=== PATIENT | female | born 1975 | race Caucasian/White ===

== ENCOUNTER → 2020-04-24 09:51 | Outpatient (CLI) | payer BC, SELFPAY ==
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
== END ==
PROVIDERS: Visit Provider Nurse Practitioner Family
DX: M54.6 Pain in thoracic spine (principal); M47.896 Other spondylosis, lumbar region
CPT/HCPCS: 72070; 72110

== ENCOUNTER → 2020-05-20 15:25 | Outpatient (CLI) | payer BC, SELFPAY ==
--- NOTE | ~2020-05-20 | XR_ITS ---
EXAMINATION: XR cervical spine 4-5V DATE: 05/20/2020 15:59 INDICATION: Neck pain. TECHNIQUE: 6 views of cervical spine were obtained. COMPARISON: None. FINDINGS: Bone alignment is normal. Vertebral body heights are normal. There is mildly decreased disc height at C4-C5. There is no abnormal motion with flexion or extension. At C4-C5, there is mild bila teral uncovertebral joint osteoarthritis. The facet joints are unremarkable. No central canal stenosi s or prevertebral soft tissue swelling. IMPRESSION: 1. Mild cervical spondylosis. Reviewed, dictated and finalized at location A.
--- NOTE | ~2020-05-20 | XR_ITS ---
XR shoulder LT min 2V 05/20/2020 15:59 Indication: Left shoulder pain Procedure: 4 views left shoulder Comparison: No prior studies for comparison. Findings: No fracture or traumatic malalignment. No significant soft tissue abnormality. No foreign b odies. Anatomic alignment. Impression: 1: No significant bone or joint abnormality. Reviewed, dictated and finalized at location B. Impression: 1: No significant bone or joint abnormality.
== END ==
PROVIDERS: Visit Provider Nurse Practitioner Family
DX: M25.512 Pain in left shoulder (principal); M47.892 Other spondylosis, cervical region
CPT/HCPCS: 72050; 73030

== ENCOUNTER 2021-08-19 02:11 | Day surgery (SDC) | payer OTHER, SELFPAY ==
[2021-08-05 09:46] VITALS: BMI 25.0
--- NOTE | 2021-08-18 20:54 | PM.HPGS ---
History of Present Illness History of Present Illness Consent: Risks, benefits, and alternatives have been discussed and questions answered. Patient agrees to proceed with procedure. Chief complaint: diarrhea Narrative: Christin Momin is a 46 year old female with diarrhea for 1 year,And negative Celiac testing, she will have 8-10 watery stools per day. The next day she will be constipated have abdominal pain. She was given a prescription for Xifaxan but it just became approved a couple days ago and she has not started taking it yet. There has been no blood in her stools. Review of Systems Review of Systems: All systems reviewed & are unremarkable except as noted in HPI and below PMFSH Past Medical History Medical History Anxiety Surgical History Surgical History H/O breast surgery (~2002) augmentation History of endometrial ablation (~11/17/19) History of tubal ligation (~11/17/19) Family History Family History Mother Hypertension Father Patient's father is in good health, Onset Age: 66 Social History Social History Smoking status: Never smoker Alcohol intake: current Drinks per week: 3 Substance use: never Living arrangements: with family Sexual Orientation (if Verbalized by the Patient): Straight or Heterosexual Meds Home Medications and Allergies Home Medications Medication Instructions Recorded Confirmed Type sodium sul 1.479 gram-potas ch See Rx Instructions PO PER PKG DIR 07/12/21 08/05/21 Rx 0.188 gram-magnes sul 0.225 gram #24 tabs tablet (Sutab) bupropion HCl 150 mg 24 hr tablet, 150 tablet PO DAILY 08/05/21 08/05/21 History extended release methocarbamol 750 mg tablet 750 tablet PO PRN PRN Spasms 08/05/21 08/05/21 History Allergies Allergy/AdvReac Type Severity Reaction Status Date / Time codeine Allergy Intermediate dizziness Verified 08/19/21 08:46 Exam Const: General: alert Orientation/consciousness: patient oriented x3 Resp: Auscultation: clear to auscultation bilaterally Cardio: Rhythm: regular rhythm GI: GI Palp: Yes Soft to palpation and No Tenderness to palpation present (GI) Neuro: General: patient oriented x3 Assessment and Plan Assessment and plan (1) Chronic diarrhea: Code(s): K52.9 - Noninfective gastroenteritis and colitis, unspecified Status: Acute Assessment and Plan: Colonoscopy with possible biopsy or polypectomy or cautery or injection of substances.
[2021-08-19 08:47] VITALS: BP 144/102; PULSE 92; RESP 20; TEMP 36.2; O2SAT 100
[2021-08-19] MEDS: LACTATED RINGERS 1,000 ML 150 ML IV CONT (08:58)
--- NOTE | 2021-08-19 09:17 | WPDANESEPPF ---
Anes - Initial Pre Proc Eval Procedure: Operation Date: 08/19/21 09:30 Proposed Procedures p Colonoscopy - Sanjay Case MD Date/Time: 08/19/21 09:17 Surgeon: Sanjay Case MD Pre Op Diagnosis: diarrhea Patient Data Age: 46 Gender: F Height: 1.55 m Weight: 66.3 kg Last Vital Signs Temp 97.1 F L 08/19/21 08:47 Pulse 92 08/19/21 08:47 Resp 20 08/19/21 08:47 BP 144/102 H 08/19/21 08:47 Pulse Ox 100 08/19/21 08:47 O2 Del Method Room Air 08/19/21 08:47 Allergies Allergy/AdvReac Type Severity Reaction Status Date / Time codeine Allergy Intermediate dizziness Verified 08/19/21 08:46 Home Medications Medication Instructions Recorded Confirmed Type sodium sul 1.479 gram-potas ch See Rx Instructions PO PER PKG DIR 07/12/21 08/05/21 Rx 0.188 gram-magnes sul 0.225 gram #24 tabs tablet (Sutab) bupropion HCl 150 mg 24 hr tablet, 150 tablet PO DAILY 08/05/21 08/05/21 History extended release methocarbamol 750 mg tablet 750 tablet PO PRN PRN Spasms 08/05/21 08/05/21 History Patient hx anesthesia problems: none Family hx anesthesia problems: none Results Review: All pre-operative results and documents have been reviewed as part of the pre-operative evaluation. [facility] Past Medical History Medical History Anxiety Surgical History Surgical History H/O breast surgery (~2002) augmentation History of endometrial ablation (~11/17/19) History of tubal ligation (~11/17/19) Family History Family History Mother Hypertension Father Patient's father is in good health, Onset Age: 66 Social History Social History Smoking status: Never smoker Alcohol intake: current Drinks per week: 3 Substance use: never Living arrangements: with family Sexual Orientation (if Verbalized by the Patient): Straight or Heterosexual Anes - Eval Final PreProcedure Day of Procedure 08/19/21 09:17 Patient weight: normal Heart: regular rate and rhythm Lungs: clear to auscultation Airway: Mallampati scale class II Neurological: alert and oriented Last oral intake: >/= 8 hours ASA classification: II Emergent: no Anesthetic plan: proceed Anesthesia type and monitoring: general GIVS and standard monitoring Results Review: All pre-operative results and documents have been reviewed as part of the pre-operative evaluation. Informed Consent: The patient's anesthetic plan and its attendant risks and benefits were discussed with the patient/family/POA. Questions were solicited and answers provided to the satisfaction of the patient/family/POA.
[2021-08-19] MEDS: SIMETHICONE ORAL SUSPENSION 20 MG/0.3 ML 30 ML BOTTLE 0.6 ML IRRIGATION (09:34)
[2021-08-19 09:43] VITALS: BP 105/68; PULSE 77; RESP 20; O2SAT 100
[2021-08-19 09:53] VITALS: BP 106/72; PULSE 65; RESP 20; O2SAT 100
[2021-08-19 10:01] VITALS: BP 141/88; PULSE 62; RESP 20; O2SAT 100
== END 2021-08-19 10:14 | disposition home or self-care (01) ==
PROVIDERS: PCP Physician Assistant; Visit Provider Internal Medicine Gastroenterology
PROC: 0DJD8ZZ Inspection of Lower Intestinal Tract, Via Natural or Artificial Opening Endoscopic (ICD-10-PCS; CPT 45378; principal; 2021-08-19 09:30)
DX: K59.1 Functional diarrhea (principal); F41.9 Anxiety disorder, unspecified
CPT/HCPCS: 45380; 88305; J2704; J7120

== ENCOUNTER 2021-09-09 08:48 | Emergency (ER) | payer OTHER, SELFPAY ==
--- NOTE | ~2021-09-09 | US_ITS ---
EXAMINATION: US pelvic complete w TV DATE: 09/09/2021 12:30 INDICATION: Pelvic pain. Uterine enlargement. Comparison:No prior studies for comparison. TECHNIQUE: Multiple transabdominal and endovaginal sonographic images of the pelvis performed. FINDINGS: The uterus measures 11 x 5.6 x 4.7 cm. There are multiple uterine fibroids, largest measuri ng 2.2 x 1.8 x 1.3 cm. There is nabothian cysts, largest measuring 1.3 cm. The endometrial complex me asures 6 mm. The right ovary measures 2.4 x 2.2 x 1.3 cm and the left ovary measures 1.8 x 1.8 x 1.7 cm. There ar e small follicles in each ovary. Normal doppler signal in both ovaries. There is no free fluid in the pelvis. There are no abnormal masses seen on either side. IMPRESSION: 1. Enlarged fibroid uterus, largest discrete fibroid measuring 2.2 cm. Reviewed, dictated and finalized at location A.
--- NOTE | ~2021-09-09 | CT_ITS ---
EXAMINATION: CT abdomen pelvis w con DATE: 09/09/2021 10:33 INDICATION: Left lower abdominal pain. Recent urinary tract infection. TECHNIQUE: Computed tomography (CT) of the abdomen and pelvis was performed with 100 CC Omnipaque 300 intravenous contrast. Automated exposure control and iterative reconstruction technique were employe d. Exam dose: 382.97 mGy-cm total exam DLP. COMPARISON: None. FINDINGS: Bilateral augmentation mammoplasty. Calcified left lower lobe pulmonary granuloma. The lung bases are clear of infiltrate or consolidatio n. Normal heart size. No pericardial or pleural effusion. Scattered left and right hepatic cysts, the largest measuring 3 cm. The gallbladder is unremarkable. No bile duct or pancreatic duct dilatation. No pancreatic mass lesio n or calcification. Normal splenic size. Normal morphology of the adrenal glands. No renal mass lesion or urinary tract calculus or hydroureteronephrosis. The urinary bladder is unrem arkable. The uterus is enlarged, measuring up to 11 cm vertical and 4.4 cm anteroposterior dimension. There is heterogeneous density of the uterus which might be due to fibroid is; endometrial carcinoma is not e xcluded. There is moderate fluid in the mid and lower uterine endometrial cavity, measuring up to 8.8 mm AP dimension. Consider further evaluation with pelvic ultrasound. 1 cm right ovarian cyst and 1.7 cm left ovarian cyst. Diverticulosis of the colon; no CT evidence of diverticulitis. No bowel obstruction, bowel wall thick ening, pneumatosis or intraperitoneal free air. Normal caliber of the abdominal aorta. No intraperitoneal or retroperitoneal or pelvic mass lesion or adenopathy or ascites. Bilateral L5 pars interarticularis defects with grade 2 anterolisthesis at L5-S1 Moderate to moderately severe degenerative disc disease at L5-S1. No suspicious osteolytic or osteoblastic lesions are noted. IMPRESSION: Diverticulosis of the left colon; mild pericolic stranding in the sigmoid area may be du e to mild sigmoid diverticulitis. Clinical correlation is advised. No diverticular abscess. Uterine enlargement and heterogeneity. The heterogeneity may be due to uterine fibroids. Endometrial carcinoma is not excluded 1 cm right ovarian cyst 1.7 cm left ovarian cyst Hepatic cysts Status post bilateral augmentation mammoplasty Bilateral L5 pars interarticularis defects and grade 2 anterolisthesis and moderately severe degenera tive disc disease at L5-S1 Reviewed, dictated and finalized at Location A. Reviewed, dictated and finalized at location B. IMPRESSION: Diverticulosis of the left colon; mild pericolic stranding in the sigmoid area may be due to mild sigmoid diverticulitis. Clinical correlation is advised. No diverticular abscess. Uterine enlargement and heterogeneity. The heterogeneity may be due to uterine fibroids. Endometrial carcinoma is not excluded 1 cm right ovarian cyst 1.7 cm left ovarian cyst Hepatic cysts Status post bilateral augmentation mammoplasty Bilateral L5 pars interarticularis defects and grade 2 anterolisthesis and mode rately severe degenerative disc disease at L5-S1
[2021-09-09 08:56] VITALS: BP 141/96; PULSE 85; RESP 16; TEMP 36.6; O2SAT 100
--- NOTE | 2021-09-09 09:21 | ED.ABDPAIN ---
HPI - Abdominal Pain General Chief Complaint: Urogenital-Female Stated Complaint: UTI, abd pain, pelvic pain Time Seen by Provider: 09/09/21 09:08 Source: patient Mode of arrival: ambulatory Limitations: no limitations History of Present Illness HPI narrative: This is a 46-year-old female that presents emergency department for lower abdominal pain. Ongoing over the last couple of days. Reports the pain is crampy in nature. Reports she was recently treated with Macrobid for UTI. Her pain, burning and frequency have resolved. But now she has been experiencing abdominal pain. Denies fever or vomiting. Related Data Home Medications Medication Instructions Recorded Confirmed bupropion HCl 150 mg 24 hr tablet, 150 tablet PO DAILY 08/05/21 08/05/21 extended release methocarbamol 750 mg tablet 750 tablet PO PRN PRN Spasms 08/05/21 08/05/21 Allergies Allergy/AdvReac Type Severity Reaction Status Date / Time codeine Allergy Intermediate dizziness Verified 09/09/21 09:08 Review of Systems Review of Systems: CONSTITUTIONAL: Denies fever GASTROINTESTINAL: Reports abdominal pain and diarrhea. Denies nausea, vomiting GENITOURINARY: Denies dysuria or hematuria. All systems reviewed & are unremarkable except as noted in HPI and below PMFSH Past Medical History Medical History Anxiety Surgical History Surgical History H/O breast surgery (~2002) augmentation History of endometrial ablation (~11/17/19) History of tubal ligation (~11/17/19) Family History Family History Mother Hypertension Father Patient's father is in good health, Onset Age: 66 Social History Social History Smoking status: Never smoker Alcohol intake: current Drinks per week: 3 Substance use: never Sexual Orientation (if Verbalized by the Patient): Straight or Heterosexual Exam Narrative: GENERAL: Well-appearing, well-nourished, and in no acute distress. HEAD: Normocephalic, atraumatic. EYES: EOMI. CHEST: Clear to auscultation. No respiratory distress. No wheezes rales or rhonchi HEART: Regular rate and rhythm. No murmur heard. Normal peripheral pulses. ABDOMEN: Soft, nondistended, normal active bowel sounds. Tender to palpation throughout the lower abdomen, without guarding. No CVA tenderness EXTREMITIES: Normal range of motion. No edema. SKIN: Warm, dry, no rash. NEURO: No focal deficits. Alert and oriented x3. PSYCH: Normal mood and affect Course Vital Signs Vital signs: Vital Signs Temperature 97.9 F 09/09/21 08:56 Pulse Rate 85 09/09/21 08:56 Respiratory Rate 16 09/09/21 08:56 Blood Pressure 141/96 H 09/09/21 08:56 Pulse Oximetry 100 09/09/21 08:56 Oxygen Delivery Room Air 09/09/21 08:56 Temperature 97.9 F 09/09/21 08:56 Pulse Rate 82 09/09/21 13:30 Respiratory Rate 17 09/09/21 13:30 Blood Pressure 141/96 H 09/09/21 08:56 Pulse Oximetry 98 09/09/21 13:30 Oxygen Delivery Room Air 09/09/21 08:56 MDM - Abdominal Pain MDM Narrative Medical decision making narrative: Patient presents to the emergency department for lower abdominal/pelvic pain. Ongoing over the last couple of days. She is afebrile and nontoxic-appearing. Her vitals are stable CBC and metabolic panel without concerning findings. UA without evidence of infection. Bedside test is negative. CT scan abdomen and pelvis shows mild diverticulitis. Also shows uterine enlargement and heterogeneity. Could be fibroids versus endometrial carcinoma. Pelvic ultrasound shows an enlarged fibroid uterus. Normal vascular flow to the ovaries. No abnormal masses noted. Patient was updated on case findings. Will be started on oral antibiotics for diverticulitis. Instructed on continued care of diverti
[2021-09-09 09:33] LABS: Basophils Percent Auto 0.5 % (0.2-1.2); Eosinophils Absolute Auto 0.1 K/mm3 (0-0.3); Eosinophils Percent Auto 2.3 % (0-4.4); Hematocrit 40.7 % (37.0-47.0); Hemoglobin 13.1 g/dL (12.0-15.0); Immature Granulocyte Absolute 0.01 K/mm3 (0.00-0.031); Immature Granulocyte Percent A 0.2 % (0-0.5); Lymphocytes Absolute Auto 1.64 K/mm3 (0.9-3.2); Lymphocytes Percent Auto 29.4 % (18.3-44.2); Mean Corpuscular HGB Conc 32.2 g/dl (32-36); Mean Corpuscular Hemoglobin 30.7 pg (26-34); Mean Corpuscular Volume 95.3 fl (80-100); Mean Platelet Volume 9.9 fl (7.4-10.4); Monocytes Absolute Auto 0.4 K/mm3 (0.1-0.6); Neutrophils Absolute Auto 3.4 K/mm3 (1.3-6.7); Neutrophils Percent Auto 60.6 % (45.5-73.1); Platelet Count Result 256 k/mm3 (150-375); Red Blood Count 4.27 M/mm3 (4.2-5.4); Red Cell Distribution Width 13.9 % (11.5-14.5); White Blood Count 5.6 K/mm3 (4.5-10.0)
[2021-09-09 09:34] LABS: Appearance Urine Clear (Clear); Bilirubin Urine Negative (Negative); Blood Urine Negative (Negative); Color Urine Yellow (Yellow); Glucose Urine UA Negative (Negative); Ketones Urine Negative (Negative); Leukocyte Esterase Ur Negative LEU/UL (Negative); Nitrate Urine Negative (Negative); Protein Urine Negative (Negative); Specific Grav Ur 1.025 (1.001-1.035); Urobilinogen Urine 0.2 mg/dL (<2.0); pH Urine 6.5 (5.0-9.0)
[2021-09-09 09:40] LABS: Mucus Urine Rare /lpf; RBC Urine 0-2 /hpf (0-2); Squamous Epithelial Cell Urine Many /hpf (Few)
[2021-09-09 09:41] LABS: Add Urine Microscopic? NO
[2021-09-09 09:46] LABS: Alanine Aminotransferase 18 U/L (6-35); Albumin Level 4.2 g/dL (3.5-5.1); Alkaline Phosphatase 87 U/L (38-126); Anion Gap 6 mmol/L (8-16); Aspartate Amino Transferase 21 U/L (14-36); Bilirubin,Total 0.6 mg/dL (0.2-1.3); Blood Urea Nitrogen 13 mg/dL (7-17); Calcium 9.1 mg/dL (8.4-10.2); Carbon Dioxide 28 mmol/L (22-30); Chloride 102 mmol/L (98-107); Estimated CRCL calculation 67 ml/min; Estimated Glomerular Filt Rate > 60; Glucose 89 mg/dL (65-110); Lipase 59 U/L (23-300); Potassium 4.2 mmol/L (3.4-5.0); Sodium 136 mmol/L (137-145)
--- NOTE | 2021-09-09 12:22 | PC.NURSE ---
pt requesting to go to her car to grab her work phone. pt's IV removed w/ catheter intact.
[2021-09-09 13:30] VITALS: PULSE 82; RESP 17; O2SAT 98
== END 2021-09-09 13:32 | disposition home or self-care (01) ==
PROVIDERS: Physician Assistant; Emergency Provider General Practice; PCP Physician Assistant
DX: K57.32 Diverticulitis of large intestine without perforation or abscess without bleeding (principal); D25.9 Leiomyoma of uterus, unspecified; N83.201 Unspecified ovarian cyst, right side; K76.89 Other specified diseases of liver; F41.9 Anxiety disorder, unspecified
CPT/HCPCS: 36415; 74177; 76830; 76856; 80053; 81003; 81025; 83690; 85025; 96365; 99284; J0131; Q9967

== ENCOUNTER 2021-12-21 18:12 | Emergency (ER) | payer SELFPAY ==
--- NOTE | 2021-12-21 18:28 | PC.NURSE ---
PT TO DESK REPORTING SHE WANTS TO GO HOME AND CALL HER DOCTOR IN THE MORNING. PT ENCOURAGED TO RETURN AT ANY TIME. PT A&OX4 IN NO ACUTE DISTRESS.
== END 2021-12-22 02:30 | disposition left against medical advice (07) ==
LOC: ANHED 19:26
PROVIDERS: PCP Physician Assistant
DX: Z53.21 Procedure and treatment not carried out due to patient leaving prior to being seen by health care provider (principal)
CPT/HCPCS: 99199

== ENCOUNTER 2021-12-22 04:40 | Inpatient (IN) | payer BC, SELFPAY ==
--- NOTE | ~2021-12-22 | CT_ITS ---
EXAMINATION: CT abdomen pelvis w con DATE: 12/22/2021 06:15 INDICATION: Low abdominal pain. TECHNIQUE: Computed tomography (CT) of the abdomen and pelvis was performed with 100 L Omnipaque 350 intravenous contrast. Automated exposure control and iterative reconstruction technique were employed . The dose-length product was 511.85 mGy-cm. COMPARISON: CT abdomen and pelvis 09/09/2021 FINDINGS: The visualized portions of the lung bases demonstrate mild atelectasis. No pleural effusion . The heart size is normal. No pericardial effusion. Breast implants are noted. There is a small slid ing hiatal hernia. There are cysts in the liver measuring up to 3.1 cm. The gallbladder, spleen, panc reas, adrenal glands, and kidneys are normal. There are scattered diverticula in the colon. There is wall thickening of sigmoid colon with surrounding fat stranding, consistent with diverticulitis. Ther e are foci of free intraperitoneal gas near the sigmoid colon. The appendix is normal. There are no d ilated loops of bowel. There are no pathologically enlarged lymph nodes. There is trace fluid in the pelvis. There are small uterine fibroids. There are chronic bilateral L5 pars defects. There is 6 mm anterolisthesis of L5 on S1. There is moderate lower lumbar spondylosis. Thoracolumbar levoscoliosis is noted. IMPRESSION: 1. Sigmoid diverticulitis with microperforation. No abscess. Reviewed, dictated and finalized at location A.
[2021-12-22 04:49] VITALS: BP 122/81; PULSE 94; RESP 18; TEMP 36.6; O2SAT 100
[2021-12-22] MEDS: MORPHINE SULFATE (*CRX) 4 MG/ML INJ IV PUSH (05:08)
[2021-12-22] MEDS: SODIUM CHLORIDE 0.9% IV 1,000 ML 999 ML IV CONT (05:09)
[2021-12-22 05:35] LABS: Basophils Percent Auto 0.2 % (0.2-1.2); Eosinophils Absolute Auto 0.1 K/mm3 (0-0.3); Eosinophils Percent Auto 0.6 % (0-4.4); Hematocrit 38.7 % (37.0-47.0); Hemoglobin 12.7 g/dL (12.0-15.0); Immature Granulocyte Absolute 0.13 K/mm3 (0.00-0.031); Immature Granulocyte Percent A 0.7 % (0-0.5); Lymphocytes Absolute Auto 1.29 K/mm3 (0.9-3.2); Lymphocytes Percent Auto 7.2 % (18.3-44.2); Mean Corpuscular HGB Conc 32.8 g/dl (32-36); Mean Corpuscular Hemoglobin 31.4 pg (26-34); Mean Corpuscular Volume 95.8 fl (80-100); Mean Platelet Volume 10.5 fl (7.4-10.4); Monocytes Absolute Auto 0.7 K/mm3 (0.1-0.6); Monocytes Percent Auto 3.7 % (2.6-8.5); Neutrophils Absolute Auto 15.8 K/mm3 (1.3-6.7); Neutrophils Percent Auto 87.6 % (45.5-73.1); Platelet Count Result 337 k/mm3 (150-375); Red Blood Count 4.04 M/mm3 (4.2-5.4); Red Cell Distribution Width 13.8 % (11.5-14.5)
[2021-12-22 05:46] LABS: Alanine Aminotransferase 31 U/L (6-35); Albumin Level 4.7 g/dL (3.5-5.1); Alkaline Phosphatase 79 U/L (38-126); Anion Gap 10 mmol/L (8-16); Aspartate Amino Transferase 28 U/L (14-36); Bilirubin,Total 1.1 mg/dL (0.2-1.3); Blood Urea Nitrogen 18 mg/dL (7-17); Calcium 8.9 mg/dL (8.4-10.2); Carbon Dioxide 28 mmol/L (22-30); Chloride 100 mmol/L (98-107); Estimated Glomerular Filt Rate > 60; Glucose 131 mg/dL (65-110); Sodium 138 mmol/L (137-145)
--- NOTE | 2021-12-22 05:51 | ED.ABDPAIN ---
HPI - Abdominal Pain General Chief Complaint: Abdominal Pain Stated Complaint: abd pain/cramping Time Seen by Provider: 12/22/21 04:41 History of Present Illness HPI narrative: Patient is a 46-year-old female who presents ER with lower abdominal pain. Ongoing since yesterday afternoon. Radiates towards back and into the buttock. Had similar pain a couple months ago was diagnosed with diverticulitis. Patient also reports that she has fibroid uterus and has recently finished her cycle. No fevers or chills or sweats. Pain is worse with moving. No alleviating factors. Related Data Home Medications Medication Instructions Recorded Confirmed bupropion HCl 150 mg 24 hr tablet, 150 tablet PO DAILY 08/05/21 08/05/21 extended release methocarbamol 750 mg tablet 750 tablet PO PRN PRN Spasms 08/05/21 08/05/21 Allergies Allergy/AdvReac Type Severity Reaction Status Date / Time codeine Allergy Intermediate dizziness Verified 09/09/21 09:08 Review of Systems Review of Systems: All systems reviewed & are unremarkable except as noted in HPI and below Constitutional: Constitutional: Denies chills, Denies fatigue and Reports fever(s) ENT: Denies nasal congestion and Denies sore throat Cardiovascular: Cardiovascular: Denies chest pain, Denies rapid heart rate and Denies radiating jaw, neck or arm pain Respiratory: Respiratory: Denies cough and Denies dyspnea Gastrointestinal: Gastrointestinal: Reports abdominal pain, Denies diarrhea, Denies nausea and Denies vomiting Genitourinary: Genitourinary: Denies nocturia, Denies dysuria and Denies flank pain Musculoskeletal: Musculoskeletal: Denies back pain and Denies myalgias [facility] Past Medical History Medical History Anxiety Surgical History Surgical History H/O breast surgery (~2002) augmentation History of endometrial ablation (~11/17/19) History of tubal ligation (~11/17/19) Family History Family History Mother Hypertension Father Patient's father is in good health, Onset Age: 66 Social History Social History Smoking status: Never smoker Alcohol intake: current Drinks per week: 3 Substance use: never Sexual Orientation (if Verbalized by the Patient): Straight or Heterosexual Exam Narrative: GENERAL: Uncomfortable-appearing, well-nourished, and in no acute distress. HEAD: Normocephalic, atraumatic. EYES: PERRL and EOMI. CHEST: Clear to auscultation. No respiratory distress. HEART: Regular rate and rhythm. Normal peripheral pulses. ABDOMEN: Soft, tender palpation lower abdomen left lower quadrant greater than right, nondistended. EXTREMITIES: Normal range of motion. No edema. SKIN: Warm, dry, no rash. NEURO: Alert and oriented x3. PSYCH: Normal mood and affect. Course Course Emergency Course: Case with general surgery who will accept patient primarily. Patient will be started on Flagyl. Still with significant pain after morphine and Dilaudid. Its recommend that patient received IV Caldolor. Vital Signs Vital signs: Vital Signs Temperature 97.8 F 12/22/21 04:49 Pulse Rate 94 12/22/21 04:49 Respiratory Rate 18 12/22/21 04:49 Blood Pressure 122/81 12/22/21 04:49 Pulse Oximetry 100 12/22/21 04:49 Oxygen Delivery Room Air 12/22/21 04:49 Temperature 97.8 F 12/22/21 04:49 Pulse Rate 94 12/22/21 04:49 Respiratory Rate 18 12/22/21 04:49 Blood Pressure 122/81 12/22/21 04:49 Pulse Oximetry 100 12/22/21 04:49 Oxygen Delivery Room Air 12/22/21 04:49 MDM - Abdominal Pain Lab Data Result diagrams: 12/22/21 05:30 12/22/21 05:30 Labs: Lab Results 12/22/21 12/22/21 Range/Units 05:30 05:30 WBC 18.0 H (4.5-10.0) K/mm3 RBC 4.04 L (4.2-5.4) M/mm
[2021-12-22] MEDS: HYDROmorphone HCL INJ (*CRX) 1 MG/ML SYR IV PUSH ×4 (05:53→21:46)
[2021-12-22 07:25] LABS: Appearance Urine Clear (Clear); Bilirubin Urine Negative (Negative); Blood Urine 1+ (Negative); Color Urine Light Yellow (Yellow); Glucose Urine UA Negative (Negative); Ketones Urine Negative (Negative); Leukocyte Esterase Ur Negative LEU/UL (Negative); Nitrate Urine Negative (Negative); Protein Urine Negative (Negative); Urobilinogen Urine 0.2 mg/dL (<2.0)
[2021-12-22 07:42] LABS: Mucus Urine Rare /lpf; RBC Urine 0-2 /hpf (0-2); Squamous Epithelial Cell Urine Few /hpf (Few); WBC Urine 0-3 /hpf
[2021-12-22 07:56] LABS: Add Urine Microscopic? YES
[2021-12-22 08:05] VITALS: BP 138/79; PULSE 104; RESP 16; O2SAT 98
[2021-12-22 08:46] VITALS: BP 125/71; PULSE 104; RESP 20; TEMP 36.9; O2SAT 100
[2021-12-22] MEDS: SODIUM CHLORIDE 0.9% IV 1,000 ML 125 ML IV CONT ×2 (09:58→17:51)
--- NOTE | 2021-12-22 10:33 | ADMGEN ---
This patient, Christin Momin, was admitted to 3 [facility] Surg Room 309-01. Patient/family oriented to hospital policies and general routines including ID bracelet, bed and alarms, visiting hours, pain management, procedures, bathroom and other care routines, personal items, smoking policy, room service/diet, and visiting hours. Information on how to activate the Rapid Response Team has been discussed. Patient/Family are encouraged to report perceived risks to care and to ask questions if they do not understand what they are told or what they should do.
[2021-12-22] MEDS: IBUPROFEN IV 800 MG/200 ML 800 MG/200 ML BAG 400 MG IVPB ×3 (12:04→21:29)
[2021-12-22 14:00] VITALS: BP 114/58; PULSE 89; RESP 16; TEMP 36.6; O2SAT 98
--- NOTE | 2021-12-22 16:37 | PM.IMHP ---
H&P: HPI History of Present Illness Date/Time: 12/22/21 07:37 Chief Complaint: Severe lower abdominal pain Narrative: Patient is a 46-year-old woman who about 3:00 p.m. yesterday began having severe suprapubic pain that went across her lower abdomen. She initially came to the emergency room thinking she would be admitted. Emergency room looked busy so she left and went home. She tried couple of over the counter analgesics at home but then came back about 4:00 a.m. this morning to the emergency room with persistent if not more severe pain. She had some vomiting x2 with the pain. She has had no constipation or diarrhea. She was noted to have lower abdominal tenderness on exam worse in the left lower quadrant. [place] [id number] scan of the abdomen and pelvis showed acute diverticulitis with some small pockets of air in the vicinity of the sigmoid colon. I was called to see the patient regarding her abdominal pain and abnormal CT scan. Patient reports that she had a colonoscopy last summer. Review of the records show that Dr. Case performed a colonoscopy on 08/19/2021 for chronic loose stools or diarrhea. This was essentially negative except for some diverticulosis. Three weeks later, 09/09/2021, she went to the emergency room with suprapubic lower abdominal pain similar to what she presents with now. CT scan at that time showed mild inflammatory changes of the sigmoid colon. She also had a large fibroid uterus. She was treated with 10 days of Augmentin and this resolved. She has not had any symptoms of this type since then until yesterday. She has had no previous bowel surgery. She did have a tubal ligation in the past. Review of Systems Review of Systems: All systems reviewed & are unremarkable except as noted in HPI and below (HPI and those items noted below) Constitutional: Constitutional: Reports as per HPI, Denies chills, Denies fever(s) and Reports poor appetite Cardiovascular: Cardiovascular: Denies chest pain, Denies diaphoresis, Denies dyspnea and Denies paroxysmal nocturnal dyspnea Respiratory: Respiratory: Denies chest congestion, Denies cough and Denies dyspnea Gastrointestinal: Gastrointestinal: Reports as per HPI, Reports abdominal pain and Reports vomiting Genitourinary: Genitourinary: Reports no additional female genitourinary complaints (Just finished recent menstrual period), Reports as per HPI, Denies abnormal vaginal bleeding and Denies nocturia Integumentary/Breasts: Skin/Breast: Denies lesions and Denies rash PMFSH Past Medical History Medical History (Updated 12/22/21 @ 17:03 by Hugo Rico MD) Anxiety Surgical History Surgical History H/O breast surgery (~2002) augmentation History of endometrial ablation (~11/17/19) History of tubal ligation (~11/17/19) Family History Family History Mother Hypertension Father Patient's father is in good health, Onset Age: 66 Social History Social History Smoking status: Never smoker Alcohol intake: current Drinks per week: 3 Substance use: never Has the Lack of Transportation Kept You From Medical Appointments or From Getting Medications?: No Within the Past 12 Months, Were You Worried Whether Your Food Would Run Out Before You Got Money to Buy More?: Never True What is Your Housing Situation Today?: I Have Housing Are You Worried That in the Next 2 Months, You May Not Have Your Own Housing to Live In?: No Do You Have Trouble Paying Your Heating Or Electricity Bill?: No Do You Have Trouble Paying For Medicines?: No Are You Currently Unemployed and Looking for Work?: No Highest Level of Education Completed: Bachelor's Degree Do You Have Trouble With Childcare or the Care of a Family Member?: No Sexual Orientation (if Verbalized by th
[2021-12-22 20:00] VITALS: PULSE 89; RESP 16; O2SAT 98
[2021-12-22] MEDS: FAMOTIDINE 20 MG/2 ML VIAL IV PUSH (21:27)
[2021-12-22 22:00] VITALS: BP 116/69; PULSE 104; RESP 22; TEMP 36.8; O2SAT 99
[2021-12-23] MEDS: HYDROmorphone HCL INJ (*CRX) 1 MG/ML SYR IV PUSH ×2 (02:55→23:41)
[2021-12-23] MEDS: SODIUM CHLORIDE 0.9% IV 1,000 ML 125 ML IV CONT ×2 (02:57→14:26)
[2021-12-23 04:00] VITALS: BP 137/77; PULSE 101; RESP 18; TEMP 36.6; O2SAT 95
[2021-12-23] MEDS: IBUPROFEN IV 800 MG/200 ML 800 MG/200 ML BAG 400 MG IVPB ×4 (04:19→21:28)
[2021-12-23 06:38] LABS: Hemoglobin 10.7 g/dL (12.0-15.0); Mean Corpuscular HGB Conc 32.4 g/dl (32-36); Mean Corpuscular Hemoglobin 30.7 pg (26-34); Mean Corpuscular Volume 94.6 fl (80-100); Mean Platelet Volume 10.5 fl (7.4-10.4); Platelet Count Result 230 k/mm3 (150-375); Red Blood Count 3.49 M/mm3 (4.2-5.4); Red Cell Distribution Width 14.1 % (11.5-14.5); White Blood Count 14.2 K/mm3 (4.5-10.0)
[2021-12-23 07:22] LABS: Anion Gap 12 mmol/L (8-16); Blood Urea Nitrogen 10 mg/dL (7-17); Calcium 7.5 mg/dL (8.4-10.2); Carbon Dioxide 20 mmol/L (22-30); Chloride 105 mmol/L (98-107); Estimated Glomerular Filt Rate > 60; Glucose 95 mg/dL (65-110); Potassium 3.2 mmol/L (3.4-5.0); Sodium 137 mmol/L (137-145)
[2021-12-23 08:00] VITALS: BP 122/89; PULSE 96; RESP 18; TEMP 36.2; O2SAT 100
[2021-12-23] MEDS: FAMOTIDINE 20 MG/2 ML VIAL IV PUSH ×2 (08:44→21:38)
[2021-12-23] MEDS: buPROPion HCL XL (24 HR) 150 MG TABCR PO (08:44)
[2021-12-23] MEDS: ENOXAPARIN 40 MG/0.4 ML SYRINGE SUB-Q (08:44)
[2021-12-23] MEDS: HYDROmorphone HCL INJ (*CRX) 1 MG/ML SYR 0.5 MG IV PUSH ×3 (08:45→18:06)
[2021-12-23 12:00] VITALS: BP 115/69; PULSE 109; RESP 18; TEMP 36; O2SAT 100
--- NOTE | 2021-12-23 13:25 | PM.PNGS ---
Progress Note: A&P Assessment and Plan (1) Diverticulitis of large intestine with perforation: Code(s): K57.20 - Diverticulitis of large intestine with perforation and abscess without bleeding Status: Acute Assessment and Plan: Making a little progress. The hydromorphone and IV ibuprofen are helping with pain control. White blood cell count slightly lower. Continue bowel rest and analgesics. Has been up to the bathroom. Recheck labs and exam again tomorrow. Discussed elective sigmoidectomy again this morning. (2) Headache associated with infection: Code(s): B99.9 - Unspecified infectious disease; R51.9 - Headache, unspecified Status: Acute Assessment and Plan: Gets frequent headaches in usually Excedrin extra-strength works. Will go ahead and order this. Subjective Subjective Date/Time Seen: 12/23/21 13:25 Patient reports: still having pain (Still requiring pain medication), no flatus, no bowel movement, afebrile and other (Has a headache, takes Excedrin at home) Review of Systems Review of Systems: All systems reviewed & are unremarkable except as noted in HPI and below (HPI and those items noted below) Constitutional: Constitutional: Denies chills and Denies fever(s) Cardiovascular: Cardiovascular: Denies chest pain, Denies diaphoresis, Denies dyspnea and Denies paroxysmal nocturnal dyspnea Respiratory: Respiratory: Denies chest congestion, Denies cough and Denies dyspnea Integumentary/Breasts: Skin/Breast: Denies lesions and Denies rash Exam Const: General: comfortable (More comfortable than yesterday) and no acute distress; No confusion Orientation/consciousness: patient oriented x3 and No confusion GI: Inspection: normal to inspection and non-distended GI Palp: Yes Firmness to palpation present (GI) (Less so than yesterday), Yes Tenderness to palpation present (GI) (Still very tender throughout), No Guarding due to palpation present (GI), No Hernia present, No Palpable mass present and No Rebound tenderness present Auscultation: absent bowel sounds Neuro: General: patient oriented x3, no focal motor deficits and No confusion Extrem: General: no calf tenderness and no edema Psych: Affect: normal affect Insight: Good insight present (Psych) Judgement: Good judgement present (Psych) Objective Data Vital Signs Vital Signs: Vital Signs - 24 hr 12/22/21 14:00 12/22/21 20:00 12/22/21 22:00 Temperature 36.6 C 36.8 C Pulse Rate 89 89 104 H Respiratory Rate 16 16 22 H Blood Pressure 114/58 L 116/69 Pulse Oximetry 98 98 99 Oxygen Delivery Room Air 12/23/21 04:00 12/23/21 08:00 12/23/21 08:00 Temperature 36.6 C 36.2 C L Pulse Rate 101 H 96 Respiratory Rate 18 18 Blood Pressure 137/77 122/89 Pulse Oximetry 95 100 Oxygen Delivery Room Air 12/23/21 12:00 Temperature 36.0 C L Pulse Rate 109 H Respiratory Rate 18 Blood Pressure 115/69 Pulse Oximetry 100 Oxygen Delivery Intake/Output Intake/Output: Intake & Output 12/20/21 12/21/21 12/22/21 12/23/21 23:59 23:59 23:59 23:59 Intake Total 2750 1300 Balance 2750 1300 Meds/Results Medications: Active Medications Generic Name Dose Route Start Last Admin Trade Name Alfonsoq PRN Reason Stop Dose Admin Acetaminophen 500 mg 12/22/21 16:29 Acetaminophen 500 Mg Tablet PO Q6H PRN Mild Pain (1-3) or Fever Acetaminophen/Aspirin/Caffeine 1 tablet 12/23/21 13:21 Acetaminophen/Aspirin/Caffeine 250-250-65 Mg Tablet PO Q6H PRN Headache Bupropion HCl 150 mg 12/23/21 09:00 12/23/21 08:44 Bupropion Hcl Xl (24 Hr) 150 Mg Tabcr PO 150 mg QAM MAYA Administration Enoxaparin Sodium 40 mg 12/23/21 09:00 12/23/21 08:44 Enoxaparin 40 Mg/0.4 Ml Syringe SUB-Q 40 mg DAILY MAYA Administration Famotidine 20 mg 12/22/21 21:00 12/23/21 08:44 Famotidine 20 Mg/2 Ml Vial IV PUSH 20 mg Q12HR MAYA Administration Hydromorphone HCl 1 mg 12/22/21 16:2
[2021-12-23 16:00] VITALS: BP 134/83; PULSE 103; RESP 20; TEMP 36.3; O2SAT 100
[2021-12-23] MEDS: ACETAMINOPHEN/ASPIRIN/CAFFEINE 250-250-65 MG TABLET 1 TABLET PO (16:39)
[2021-12-23 20:00] VITALS: BP 119/85; PULSE 94; RESP 16; TEMP 37.1; O2SAT 100
[2021-12-23] MEDS: SIMETHICONE 80 MG TAB.CHEW PO (21:37)
[2021-12-23 23:53] VITALS: BP 136/84; PULSE 99; RESP 16; TEMP 36.6; O2SAT 99
[2021-12-24] MEDS: SODIUM CHLORIDE 0.9% IV 1,000 ML 125 ML IV CONT ×2 (00:15→10:09)
[2021-12-24] MEDS: IBUPROFEN IV 800 MG/200 ML 800 MG/200 ML BAG 400 MG IVPB ×4 (03:44→21:37)
[2021-12-24 04:00] VITALS: BP 137/85; PULSE 98; RESP 16; TEMP 36.8; O2SAT 94
[2021-12-24 06:41] LABS: Hematocrit 31.8 % (37.0-47.0); Hemoglobin 10.3 g/dL (12.0-15.0); Mean Corpuscular HGB Conc 32.4 g/dl (32-36); Mean Corpuscular Hemoglobin 31.5 pg (26-34); Mean Corpuscular Volume 97.2 fl (80-100); Mean Platelet Volume 10.9 fl (7.4-10.4); Platelet Count Result 232 k/mm3 (150-375); Red Blood Count 3.27 M/mm3 (4.2-5.4); White Blood Count 12.8 K/mm3 (4.5-10.0)
[2021-12-24 06:51] LABS: Anion Gap 17 mmol/L (8-16); Blood Urea Nitrogen 8 mg/dL (7-17); Calcium 7.7 mg/dL (8.4-10.2); Carbon Dioxide 16 mmol/L (22-30); Chloride 107 mmol/L (98-107); Estimated Glomerular Filt Rate > 60; Glucose 85 mg/dL (65-110); Sodium 140 mmol/L (137-145)
[2021-12-24 08:00] VITALS: BP 146/83; PULSE 95; RESP 20; TEMP 36.3; O2SAT 100
[2021-12-24] MEDS: HYDROmorphone HCL INJ (*CRX) 1 MG/ML SYR 0.5 MG IV PUSH ×3 (08:36→17:56)
[2021-12-24] MEDS: SIMETHICONE 80 MG TAB.CHEW PO ×3 (08:36→21:45)
[2021-12-24] MEDS: buPROPion HCL XL (24 HR) 150 MG TABCR PO (08:39)
[2021-12-24] MEDS: FAMOTIDINE 20 MG/2 ML VIAL IV PUSH ×2 (08:39→20:03)
[2021-12-24] MEDS: ENOXAPARIN 40 MG/0.4 ML SYRINGE SUB-Q (08:39)
[2021-12-24 12:00] VITALS: BP 139/83; PULSE 87; RESP 20; TEMP 36.5; O2SAT 98
--- NOTE | 2021-12-24 12:48 | PM.PNGS ---
Progress Note: A&P Assessment and Plan (1) Diverticulitis of large intestine with perforation: Code(s): K57.20 - Diverticulitis of large intestine with perforation and abscess without bleeding Status: Acute Assessment and Plan: Making slow progress. IV ibuprofen works best by far for pain relief. Starting to develop an appetite. Will start clear liquids today. Continue IV Zosyn. Increase ambulation. (2) Headache associated with infection: Code(s): B99.9 - Unspecified infectious disease; R51.9 - Headache, unspecified Status: Resolved (3) Hypokalemia: Code(s): E87.6 - Hypokalemia Status: Acute Assessment and Plan: Will supplement and recheck tomorrow. Subjective Subjective Date/Time Seen: 12/24/21 12:48 Patient reports: feels better, still having pain, bowel movement and afebrile Review of Systems Review of Systems: All systems reviewed & are unremarkable except as noted in HPI and below (HPI and those items noted below) Constitutional: Constitutional: Denies chills, Denies fever(s) and Denies headache(s) Cardiovascular: Cardiovascular: Denies chest pain, Denies diaphoresis, Denies dyspnea and Denies paroxysmal nocturnal dyspnea Respiratory: Respiratory: Denies chest congestion, Denies cough and Denies dyspnea Gastrointestinal: Gastrointestinal: Reports bloating, Denies GI cramping, Denies nausea and Denies vomiting Integumentary/Breasts: Skin/Breast: Denies lesions and Denies rash Objective Data Vital Signs Vital Signs: Vital Signs - 24 hr 12/23/21 16:00 12/23/21 20:00 12/23/21 23:53 Temperature 36.3 C L 37.1 C 36.6 C Pulse Rate 103 H 94 99 Respiratory Rate 20 16 16 Blood Pressure 134/83 119/85 136/84 Pulse Oximetry 100 100 99 Oxygen Delivery 12/23/21 20:00 12/24/21 04:00 12/24/21 08:00 Temperature 36.8 C 36.3 C L Pulse Rate 98 95 Respiratory Rate 16 20 Blood Pressure 137/85 146/83 H Pulse Oximetry 94 100 Oxygen Delivery Room Air 12/24/21 08:00 12/24/21 12:00 Temperature 36.5 C Pulse Rate 87 Respiratory Rate 20 Blood Pressure 139/83 Pulse Oximetry 98 Oxygen Delivery Room Air Intake/Output Intake/Output: Intake & Output 12/21/21 12/22/21 12/23/21 12/24/21 23:59 23:59 23:59 23:59 Intake Total 2750 4000 1350 Balance 2750 4000 1350 Meds/Results Medications: Active Medications Generic Name Dose Route Start Last Admin Trade Name Freq PRN Reason Stop Dose Admin Acetaminophen 500 mg 12/22/21 16:29 Acetaminophen 500 Mg Tablet PO Q6H PRN Mild Pain (1-3) or Fever Acetaminophen/Aspirin/Caffeine 1 tablet 12/23/21 13:21 12/23/21 16:39 Acetaminophen/Aspirin/Caffeine 250-250-65 Mg Tablet PO 1 tablet Q6H PRN Administration Headache Bupropion HCl 150 mg 12/23/21 09:00 12/24/21 08:39 Bupropion Hcl Xl (24 Hr) 150 Mg Tabcr PO 150 mg QAM MAYA Administration Enoxaparin Sodium 40 mg 12/23/21 09:00 12/24/21 08:39 Enoxaparin 40 Mg/0.4 Ml Syringe SUB-Q 40 mg DAILY MAYA Administration Famotidine 20 mg 12/22/21 21:00 12/24/21 08:39 Famotidine 20 Mg/2 Ml Vial IV PUSH 20 mg Q12HR MYAA Administration Hydromorphone HCl 1 mg 12/22/21 16:29 12/23/21 23:41 Hydromorphone Hcl Inj (*Crx) 1 Mg/Ml Syr IV PUSH 1 mg Q2H PRN Administration Pain Rated 7-10 Hydromorphone HCl 0.5 mg 12/22/21 16:29 12/24/21 08:36 Hydromorphone Hcl Inj (*Crx) 1 Mg/Ml Syr IV PUSH 0.5 mg Q2H PRN Administration Pain Rated 4-6 Piperacillin/Tazobactam/Dextrose 3.375 gm in 50 mls @ 100 mls/hr 12/22/21 12:00 12/24/21 11:46 Zosyn 3.375 Gm/D5w 50ml Pm IVPB 100 mls/hr Q6HR MAYA Administration Ibuprofen 800 mg in 200 mls @ 400 mls/hr 12/22/21 16:30 12/24/21 10:10 Caldolor 800 Mg/200 Ml IVPB 400 mls/hr Q6H MAYA Administration Potassium Chloride/Sodium Chloride 1,000 mls @ 100 mls/hr 12/24/21 12:45 Kcl 40 Meq/Ns IV CONT .Q10H MAYA Naloxone HCl
[2021-12-24] MEDS: POTASSIUM CHLORIDE 20 MEQ TABLET PO (15:28)
[2021-12-24] MEDS: POTASSIUM CHLORIDE 20 MEQ TABLET.ER PO (15:29)
[2021-12-24] MEDS: KCL 40 MEQ/0.9% SOD CHL 1,000 ML 100 ML IV CONT (15:32)
[2021-12-24 16:00] VITALS: BP 146/89; PULSE 99; RESP 20; TEMP 36.9; O2SAT 94
[2021-12-24 20:45] VITALS: BP 156/94; PULSE 100; RESP 16; TEMP 36.6; O2SAT 98
[2021-12-25] MEDS: HYDROmorphone HCL INJ (*CRX) 1 MG/ML SYR IV PUSH (01:09)
--- NOTE | 2021-12-25 01:15 | PC.NURSE ---
Daylight Savings Time For Daylight Savings Time Ending in the Fall - Clocks are moved back. For Daylight Savings Time Beginning in the Spring - Clocks are moved ahead. For [facility], the time of change occurs at 0200 hrs. Time is taken from the fruit preserver. This entry on the patient's chart recognizes the change in time reflected during documentation. Example: 2 entries for vital signs may be charted for 0200 hrs.
[2021-12-25] MEDS: KCL 40 MEQ/0.9% SOD CHL 1,000 ML 100 ML IV CONT (04:12)
[2021-12-25] MEDS: IBUPROFEN IV 800 MG/200 ML 800 MG/200 ML BAG 400 MG IVPB ×2 (04:19→10:19)
[2021-12-25 06:14] VITALS: BP 139/91; PULSE 98; RESP 20; TEMP 37.2; O2SAT 96
[2021-12-25 07:57] LABS: Mean Corpuscular HGB Conc 32.3 g/dl (32-36); Mean Corpuscular Hemoglobin 30.9 pg (26-34); Mean Corpuscular Volume 95.7 fl (80-100); Mean Platelet Volume 10.9 fl (7.4-10.4); Platelet Count Result 264 k/mm3 (150-375); Red Blood Count 3.24 M/mm3 (4.2-5.4)
[2021-12-25] MEDS: ENOXAPARIN 40 MG/0.4 ML SYRINGE SUB-Q (08:04)
[2021-12-25] MEDS: SIMETHICONE 80 MG TAB.CHEW PO ×2 (08:04→20:07)
[2021-12-25] MEDS: buPROPion HCL XL (24 HR) 150 MG TABCR PO (08:05)
[2021-12-25] MEDS: FAMOTIDINE 20 MG/2 ML VIAL IV PUSH (08:05)
[2021-12-25] MEDS: POTASSIUM CHLORIDE 20 MEQ TABLET.ER PO (08:05)
[2021-12-25 08:17] LABS: Anion Gap 16 mmol/L (8-16); Blood Urea Nitrogen 5 mg/dL (7-17); Calcium 7.5 mg/dL (8.4-10.2); Carbon Dioxide 19 mmol/L (22-30); Chloride 107 mmol/L (98-107); Estimated Glomerular Filt Rate > 60; Glucose 100 mg/dL (65-110); Sodium 142 mmol/L (137-145)
--- NOTE | 2021-12-25 10:30 | PM.PNGS ---
Progress Note: A&P Assessment and Plan (1) Diverticulitis of large intestine with perforation: Code(s): K57.20 - Diverticulitis of large intestine with perforation and abscess without bleeding Status: Acute Assessment and Plan: continues to improve. Will go ahead with low-fiber diet today. Saline lock IV with good oral intake. Stop IV ibuprofen and try oral ibuprofen. Continue to ambulate. Will give Bumex as patient edematous from infection and IV fluid administration last few days. Making good progress. (2) Hypokalemia: Code(s): E87.6 - Hypokalemia Status: Acute Assessment and Plan: Will increase supplementation particularly in light of the fact that she is going to get Bumex today and tomorrow morning. Subjective Subjective Date/Time Seen: 12/25/21 10:30 Patient reports: pain is less, tolerating liquids well, bowel movement and afebrile Review of Systems Review of Systems: All systems reviewed & are unremarkable except as noted in HPI and below ( HPI and those items noted below) Constitutional: Constitutional: Reports chills ( feels cold this morning started after got her Lovenox) and Denies headache(s) Cardiovascular: Cardiovascular: Denies chest pain, Denies diaphoresis, Denies dyspnea and Denies paroxysmal nocturnal dyspnea Respiratory: Respiratory: Denies chest congestion, Denies cough and Denies dyspnea Integumentary/Breasts: Skin/Breast: Denies lesions and Denies rash Exam Const: General: comfortable and no acute distress; No confusion Orientation/consciousness: patient oriented x3 and No confusion GI: Inspection: normal to inspection and non-distended GI Palp: Yes Soft to palpation, Yes Tenderness to palpation present (GI) ( much less tender than yesterday or previous days), No Guarding due to palpation present (GI) and No Rebound tenderness present Auscultation: normal bowel sounds Neuro: General: patient oriented x3, no focal motor deficits and No confusion Extrem: General: no calf tenderness and no edema Psych: Affect: normal affect Insight: Good insight present (Psych) Judgement: Good judgement present (Psych) Objective Data Vital Signs Vital Signs: Vital Signs - 24 hr 12/24/21 12:00 12/24/21 16:00 12/24/21 20:45 Temperature 36.5 C 36.9 C 36.6 C Pulse Rate 87 99 100 Respiratory Rate 20 20 16 Blood Pressure 139/83 146/89 H 156/94 H Pulse Oximetry 98 94 98 Oxygen Delivery 12/24/21 20:00 12/25/21 06:14 Temperature 37.2 C Pulse Rate 98 Respiratory Rate 20 Blood Pressure 139/91 H Pulse Oximetry 96 Oxygen Delivery Room Air Intake/Output Intake/Output: Intake & Output 12/22/21 12/23/21 12/24/21 12/25/21 23:59 23:59 23:59 22:59 Intake Total 2750 4000 2050 1472 Balance 2750 4000 0 1472 Meds/Results Medications: Active Medications Generic Name Dose Route Start Last Admin Trade Name Freq PRN Reason Stop Dose Admin Acetaminophen/Aspirin/Caffeine 1 tablet 12/23/21 13:21 12/23/21 16:39 Acetaminophen/Aspirin/Caffeine 250-250-65 Mg Tablet PO 1 tablet Q6H PRN Administration Headache Bupropion HCl 150 mg 12/23/21 09:00 12/25/21 08:05 Bupropion Hcl Xl (24 Hr) 150 Mg Tabcr PO 150 mg QAM MAYA Administration Enoxaparin Sodium 40 mg 12/23/21 09:00 12/25/21 08:04 Enoxaparin 40 Mg/0.4 Ml Syringe SUB-Q 40 mg DAILY MAYA Administration Hydromorphone HCl 1 mg 12/22/21 16:29 12/25/21 01:09 CDT Hydromorphone Hcl Inj (*Crx) 1 Mg/Ml Syr IV PUSH 1 mg Q2H PRN Administration Pain Rated 7-10 Hydromorphone HCl 0.5 mg 12/22/21 16:29 12/24/21 17:56 Hydromorphone Hcl Inj (*Crx) 1 Mg/Ml Syr IV PUSH 0.5 mg Q2H PRN Administration Pain Rated 4-6 Piperacillin/Tazobactam/Dextrose 3.375 gm in 50 mls @ 100 mls/hr 12/22/21 12:00 12/25/21 06:11 Zosyn 3.375 Gm/D5w 50ml Pm IVPB 100 mls/hr Q6HR MAYA Administration Potassium Chloride/Sodium Chloride 1,000 mls @ 60 mls/hr
[2021-12-25] MEDS: BUMETANIDE INJ 1 MG/4 ML VIAL 2 MG IV PUSH (11:32)
[2021-12-25] MEDS: POTASSIUM CHLORIDE 20 MEQ TABLET 40 MEQ PO (11:33)
[2021-12-25 14:00] VITALS: BP 121/75; PULSE 83; RESP 20; TEMP 36.6; O2SAT 93
[2021-12-25] MEDS: IBUPROFEN 600 MG TABLET PO (16:15)
[2021-12-25] MEDS: POTASSIUM CHLORIDE 20 MEQ TABLET.ER 40 MEQ PO (17:37)
[2021-12-25] MEDS: FAMOTIDINE 20 MG TABLET PO (20:02)
[2021-12-25 21:47] VITALS: BP 142/90; PULSE 84; RESP 18; TEMP 36.1; O2SAT 97
[2021-12-26] MEDS: IBUPROFEN 600 MG TABLET PO (02:02)
[2021-12-26 06:00] VITALS: BP 148/87; PULSE 77; RESP 18; TEMP 36.2; O2SAT 98
[2021-12-26 06:30] LABS: Hematocrit 28.7 % (37.0-47.0); Hemoglobin 9.7 g/dL (12.0-15.0); Mean Corpuscular HGB Conc 33.8 g/dl (32-36); Mean Corpuscular Hemoglobin 30.7 pg (26-34); Mean Corpuscular Volume 90.8 fl (80-100); Mean Platelet Volume 10.6 fl (7.4-10.4); Platelet Count Result 253 k/mm3 (150-375); Red Blood Count 3.16 M/mm3 (4.2-5.4); Red Cell Distribution Width 13.4 % (11.5-14.5); White Blood Count 6.7 K/mm3 (4.5-10.0)
[2021-12-26 06:43] LABS: Anion Gap 12 mmol/L (8-16); Blood Urea Nitrogen 6 mg/dL (7-17); Calcium 7.7 mg/dL (8.4-10.2); Carbon Dioxide 23 mmol/L (22-30); Chloride 105 mmol/L (98-107); Estimated Glomerular Filt Rate > 60; Glucose 108 mg/dL (65-110); Sodium 140 mmol/L (137-145)
[2021-12-26] MEDS: POTASSIUM CHLORIDE 20 MEQ TABLET.ER 40 MEQ PO (08:52)
[2021-12-26] MEDS: buPROPion HCL XL (24 HR) 150 MG TABCR PO (08:52)
[2021-12-26] MEDS: FAMOTIDINE 20 MG TABLET PO (08:52)
[2021-12-26] MEDS: BUMETANIDE INJ 2.5 MG/10 ML VIAL 2 MG IV PUSH (08:52)
--- NOTE | 2021-12-26 09:53 | PM.DS ---
DS: Admitting Diagnosis Discharge Date 12/26/2021 Admitting Diagnosis acute sigmoid diverticulitis with micro perforation moderate alcohol consumption anxiety DS: Discharge Diagnosis Discharge Diagnosis (1) Diverticulitis of large intestine with perforation: Code(s): K57.20 - Diverticulitis of large intestine with perforation and abscess without bleeding Status: Acute (2) Moderate alcohol consumption: Code(s): Z78.9 - Other specified health status Status: Chronic (3) Anxiety: Code(s): F41.9 - Anxiety disorder, unspecified Status: Chronic DS: Summary Hospital Course Reason for hospitalization: This is a 46-year-old woman who presented with complaints of suprapubic pain that went across her lower abdomen x 2 days.? She initially came to the emergency room but left before being evaluated because the ER looked busy.? She tried a couple of over the counter analgesics at home but then came back about 4:00 a.m on 12/23/21 to the ER. She also had vomiting with worsening abdominal pain. Workup in the ER showed leukocytosis with a WBC count of 18k. CT scan of the abdomen and pelvis suggested acute diverticulitis with microperforation. She was admitted in this setting. Hospital Course: The patient was treated with broad-spectrum IV antibiotics, bowel rest, IV fluids, and analgesics. She did have some issues with pain control, which improved after adjusting her pain medication. As she improved, her diet was slowly advanced to a low fiber diet. Her bowels have been moving and she is tolerating solids. Her abdominal pain has improved. She did develop some edema related to the infection and IV fluids that were administered. She was treated with IV Bumex for diuresis. With serial labs, she was also found to have hypokalemia, which has been treated with potassium chloride supplementation. WBC is now down to normal and she is afebrile. Potassium is still low at 3.0 today. Will continue with potassium supplementation for the next week. She is stable for discharge and will be transitioned to oral antibiotics today. Will follow-up with Dr. Rico in 2 weeks. Status at Discharge Functional status at discharge: independent ambulation Overall status at discharge: patient is progressing back to baseline Time Spent with Patient Time attestation: Total time spent providing and/or coordinating discharge services: Time spent: Greater than 30 minutes Exam Const: General: comfortable, no acute distress and awake Orientation/consciousness: patient oriented x3 GI: Inspection: non-distended GI Palp: Yes Soft to palpation, Yes Tenderness to palpation present (GI) (very mild in LLQ), No Guarding due to palpation present (GI) and No Rebound tenderness present Auscultation: normal bowel sounds Neuro: General: no focal motor deficits Extrem: General: no calf tenderness and no edema Psych: Thought process: Normal thought process present Insight: Good insight present (Psych) DS: Data Data Completed and Pending Labs on day of discharge: Labs from last 24 hours 12/26/21 12/26/21 05:40 05:40 WBC 6.7 RBC 3.16 L Hgb 9.7 L Hct 28.7 L MCV 90.8 D MCH 30.7 MCHC 33.8 RDW 13.4 Plt Count 253 MPV 10.6 H Sodium 140 Potassium 3.0 L Chloride 105 Carbon Dioxide 23 Anion Gap 12 BUN 6 L Creatinine 0.60 L Estim Creat Clear Calc Not Reportable Estimated GFR > 60 Glucose 108 Calcium 7.7 L Preliminary micro results at discharge 12/22/21 06:55 Blood Culture - Preliminary Blood 12/22/21 06:54 Blood Culture - Preliminary Blood Imaging Radiologist's impression: ITS Impressions Abdomen/Pelvis CT 12/22/21 06:25 IMPRESSION: 1. Sigmoid diverticulitis with microperforation. No abscess. Discharge Plan Discharge Attending physician on discharge: Hugo Rico Discharging Clinician: Fidelina Staley Anticipated Discharge Date/Time: 12/26/21 10:03
== END 2021-12-26 10:55 | disposition home or self-care (01) | DRG 392 ==
LOC: ANHED 07:08 → ANH3MEDSUR 07:58
PROVIDERS: Admitting Provider Surgery; Emergency Provider Emergency Medicine; PCP Physician Assistant; Visit Provider Nurse Practitioner Family
DX: K57.20 Diverticulitis of large intestine with perforation and abscess without bleeding (principal); F41.9 Anxiety disorder, unspecified; F10.20 Alcohol dependence, uncomplicated; R51.9 Headache, unspecified; E87.6 Hypokalemia; Z79.899 Other long term (current) drug therapy; Z82.49 Family history of ischemic heart disease and other diseases of the circulatory system; Z88.5 Allergy status to narcotic agent
CPT/HCPCS: 36415; 74177; 80048; 80053; 81001; 85025; 85027; 87040; 96361; 96365; 96367; 96375; 96376; 99285; A9270; J1170; J1650; J1741; J2270; J2543; J7030; Q9967

== ENCOUNTER 2022-02-22 13:44 | Outpatient (CLI) | payer BC, SELFPAY ==
--- NOTE | 2022-02-22 14:23 | ECG_ITS ---
Measurements Intervals [place] Rate: 77 P: 38 LA: 165 QRS: 36 QRSD: 88 T: 24 QT: 369 QTc: 418 Interpretive Statements SINUS RHYTHM LOW QRS VOLTAGE IN PRECORDIAL LEADS BASELINE ARTIFACT- II, III, AVF BORDERLINE ECG NO PREVIOUS ECG AVAILABLE FOR COMPARISON Electronically Signed On 02-22-2022 14:48:51 [employer] by Anthony Mcguire D.O.
[2022-02-22 15:06] LABS: Basophils Percent Auto 0.5 % (0.2-1.2); Eosinophils Absolute Auto 0.1 K/mm3 (0-0.3); Eosinophils Percent Auto 2.1 % (0-4.4); Hematocrit 36.7 % (37.0-47.0); Hemoglobin 11.7 g/dL (12.0-15.0); Immature Granulocyte Absolute 0.01 K/mm3 (0.00-0.031); Immature Granulocyte Percent A 0.2 % (0-0.5); Lymphocytes Absolute Auto 2.09 K/mm3 (0.9-3.2); Lymphocytes Percent Auto 33.1 % (18.3-44.2); Mean Corpuscular HGB Conc 31.9 g/dl (32-36); Mean Corpuscular Hemoglobin 28.6 pg (26-34); Mean Corpuscular Volume 89.7 fl (80-100); Mean Platelet Volume 9.8 fl (7.4-10.4); Monocytes Absolute Auto 0.3 K/mm3 (0.1-0.6); Monocytes Percent Auto 4.9 % (2.6-8.5); Neutrophils Absolute Auto 3.7 K/mm3 (1.3-6.7); Neutrophils Percent Auto 59.2 % (45.5-73.1); Platelet Count Result 451 k/mm3 (150-375); Red Blood Count 4.09 M/mm3 (4.2-5.4); White Blood Count 6.3 K/mm3 (4.5-10.0)
[2022-02-22 15:09] LABS: Anion Gap 7 mmol/L (8-16); Blood Urea Nitrogen 13 mg/dL (7-17); Calcium 9.1 mg/dL (8.4-10.2); Carbon Dioxide 31 mmol/L (22-30); Chloride 101 mmol/L (98-107); Estimated Glomerular Filt Rate > 60; Glucose 96 mg/dL (65-110); Potassium 3.9 mmol/L (3.4-5.0); Sodium 139 mmol/L (137-145)
== END 2022-02-22 13:45 | disposition home or self-care (01) ==
PROVIDERS: PCP Physician Assistant; Visit Provider Surgery
DX: K57.20 Diverticulitis of large intestine with perforation and abscess without bleeding (principal)
CPT/HCPCS: 36415; 80048; 85025; 86850; 86900; 86901; 93005

== ENCOUNTER 2022-03-01 17:40 | Inpatient (IN) | payer BC, SELFPAY ==
--- NOTE | 2022-02-22 13:48 | PC.NURSE ---
PRE-OP INSTRUCTIONS, PLEASE READ CAREFULLY Report to the Outpatient Waiting Room, entrance under the green pavilion located off [facility], at time _0600_ on date _03/01/22_. Planned Procedure Time: _0730_. PACK A SMALL OVERNIGHT BAG AND LEAVE IN THE CAR Time changes happen often and if your time is changed the preop area will call you the afternoon before. - You and your visitor will be asked to self-screen and do not enter if you have any COVID symptoms. - Only one visitor is requested with a max of two and NO children visitors are allowed at this time. - The patient visitor may be requested to leave or wait in car when not with patient due to distancing restrictions. - A mask is REQUIRED within the hospital. -VISITING HOURS 8AM-8PM Patients may have clear liquids (water, carbonated beverages, clear teas, apple juice) until 3 hours prior to surgery (0430 AM) with a maximum of 20 ounces. - No food from midnight until time of surgery Take the following medications with a SIP of water the morning of surgery: __NONE__ Medications to discontinue per physician _N/A_, Date to take last dose Please no make-up, nail ukrainian, hairspray, perfume, deodorant, or body powder the day of surgery. No jewelry (including any body piercings) or valuables the day of surgery, leave them at home. Please take a shower or bath the night before, or the morning of, surgery with an antibacterial soap. Wear comfortable, loose fitting clothing. - Jewelry must be removed prior to entering the operating room. Rings and piercings that are not removed may be cut off. - The hospital will not accept responsibility for valuables. - Please leave all valuables, including medications, at home the day of surgery. If you are going home after surgery, a licensed cement mixer driver must drive you home. - NO public transportation without another adult if you receive anesthesia. - We recommend that an adult stay with you for 24 hours following discharge. - We also recommend that you do not drive, make important decision, drink alcoholic beverages, or take any drugs that were not prescribed by your health care provider for at least 24 hours after your discharge time. For Pediatric surgeries, we recommend two adults accompany the child home. Follow any additional instructions given to you from your surgeon. DIET, BOWEL PREP, PRE-OP ANTIBIOTICS, HIBICLENS SHOWER NIGHT BEFORE AND AM OF SURGERY If you or anyone in your household have experienced Covid symptoms in the past week, please notify your surgeon or the nurse liaison at the phone number below for possible testing. Instructions given to _PATIENT_and asked if any additional questions and then verbalized understanding. Patient advised to call surgeon office or pre surgery nurse liaison [phone] if any additional questions.
[2022-02-22 14:02] VITALS: BP 114/80; PULSE 84; RESP 18; TEMP 36.5; O2SAT 100; BMI 26.9
--- NOTE | 2022-02-28 17:00 | PM.IMHP ---
H&P: HPI History of Present Illness Date/Time: 02/28/22 17:00 Chief Complaint: Recurrent diverticulitis Narrative: patient is a 46-year-old woman who had an episode of diverticulitis last August. She went to the emergency room but was able to be treated as an outpatient with Augmentin. She had a more severe episode in early December requiring a 4 day hospitalization. She again recovered after inpatient IV antibiotics followed by oral antibiotics as an outpatient. She did have a colonoscopy in August 3 weeks prior to her diverticulitis episode. This was negative other than diverticulosis. After being seen in the office and thorough discussion, the patient has been prepared for surgery and is admitted now for hand access laparoscopic sigmoidectomy. Review of Systems Review of Systems: All systems reviewed & are unremarkable except as noted in HPI and below ( HPI and those items noted below) Constitutional: Constitutional: Denies chills and Denies fever(s) Cardiovascular: Cardiovascular: Denies chest pain, Denies diaphoresis, Denies dyspnea and Denies paroxysmal nocturnal dyspnea Respiratory: Respiratory: Denies chest congestion, Denies cough and Denies dyspnea Integumentary/Breasts: Skin/Breast: Denies lesions and Denies rash PMFSH Past Medical History Medical History Anxiety Surgical History Surgical History H/O breast surgery (~2002) augmentation History of endometrial ablation (~11/17/19) History of tubal ligation (~11/17/19) Family History Family History Mother Hypertension Father Patient's father is in good health, Onset Age: 66 Social History Social History Smoking status: Never smoker Second hand tobacco smoke exposure: No Alcohol intake: current Drinks per week: 3 Alcohol use details: Vodka Substance use: never Substance use type: does not use Lack of Transportation: No Lack of Food: Never True Current Housing: I Have Housing Concerned About Future Housing: No Difficulty Paying Gas/Electric Bills: No Difficulty Paying for Meds: No Currently Unemployed: No Education: Bachelor's Degree Difficulty w/ Childcare or Family Care: No Additional living arrangements comments: LIVES WITH SIGNIFICANT OTHER Sexual Orientation (if Verbalized by the Patient): Straight or Heterosexual Spiritual care concerns: No Meds Home Medications and Allergies Home Medications Medication Instructions Recorded Confirmed Type methocarbamol 750 mg tablet 750 tablet PO PRN PRN Spasms 08/05/21 02/22/22 History bupropion HCl 150 mg 24 hr tablet, 150 mg PO HS 02/22/22 02/22/22 History extended release erythromycin 500 mg tablet 1 g PO .COMPLEX #6 tabs 02/22/22 Rx metronidazole 500 mg tablet See Rx Instructions .Route 02/28/22 Rx .COMPLEX #3 tabs Allergies Allergy/AdvReac Type Severity Reaction Status Date / Time codeine Allergy Intermediate dizziness Verified 02/22/22 13:59 Exam Const: General: cooperative, comfortable, no acute distress, alert, awake, Physically active and well nourished Nutritional Appearance: well nourished Orientation/consciousness: patient oriented x3 HENMT: Head: normocephalic and atraumatic Mouth: Yes Normal oral and palatal mucosa present Eyes: Conjunctivae: conjunctivae normal Pupils: Equal, round and reactive pupils present EOM: EOMs intact bilaterally Neck: Neck: normal visual inspection, no lymphadenopathy and nontender Resp: Effort & Inspection: normal respiratory effort Auscultation: clear to auscultation bilaterally Cardio: Rate: regular rate Rhythm: regular rhythm Heart sounds: no gallops, no murmurs and no rubs GI: Inspection: non-distended GI Palp: Yes Soft to palpation, No Tenderness to palpation present (G
[2022-03-01] VITALS (18 sets, daily range): BP systolic 85–149; BP diastolic 53–92; PULSE 73–136; RESP 12–20; TEMP 36.3–37.2; O2SAT 95–100
[2022-03-01] MEDS: LACTATED RINGERS 1,000 ML 30 ML IV CONT ×2 (06:40→14:44)
[2022-03-01] MEDS: KETOROLAC 15 MG/ML VIAL (*BKC) IV PUSH (06:48)
[2022-03-01] MEDS: ONDANSETRON INJ 4 MG/2 ML VIAL IV PUSH (06:48)
[2022-03-01] MEDS: SCOPOLAMINE 1.5 MG PATCH TRANSDERM (06:50)
--- NOTE | 2022-03-01 06:52 | WPDANESEPPF ---
Anes - Initial Pre Proc Eval Procedure: Operation Date: 03/01/22 07:30 Proposed Procedures p Hand Assisted Laparoscopic Sigmoidectomy - Hugo Rico MD Date/Time: 03/01/22 06:52 Surgeon: Hugo Rico MD Pre Op Diagnosis: Diverticulitis with Perforation Patient Data Age: 46 Gender: F Height: 1.55 m Weight: 64.8 kg Last Vital Signs Temp 36.5 C 02/22/22 14:02 Pulse 84 02/22/22 14:02 Resp 18 02/22/22 14:02 BP 114/80 02/22/22 14:02 Pulse Ox 100 02/22/22 14:02 O2 Del Method Room Air 02/22/22 14:02 Allergies Allergy/AdvReac Type Severity Reaction Status Date / Time codeine Allergy Intermediate dizziness Verified 02/22/22 13:59 Home Medications Medication Instructions Recorded Confirmed Type methocarbamol 750 mg tablet 750 tablet PO PRN PRN Spasms 08/05/21 02/22/22 History bupropion HCl 150 mg 24 hr tablet, 150 mg PO HS 02/22/22 02/22/22 History extended release erythromycin 500 mg tablet 1 g PO .COMPLEX #6 tabs 02/22/22 Rx metronidazole 500 mg tablet See Rx Instructions .Route 02/28/22 Rx .COMPLEX #3 tabs Patient hx anesthesia problems: none Family hx anesthesia problems: none Results Review: All pre-operative results and documents have been reviewed as part of the pre-operative evaluation. [facility] Past Medical History Medical History (Updated 03/01/22 @ 06:52 by Aldair Sandoval MD) Anxiety Overweight Surgical History Surgical History H/O breast surgery (~2002) augmentation History of endometrial ablation (~11/17/19) History of tubal ligation (~11/17/19) Family History Family History Mother Hypertension Father Patient's father is in good health, Onset Age: 66 Social History Social History Smoking status: Never smoker Second hand tobacco smoke exposure: No Alcohol intake: current Drinks per week: 3 Alcohol use details: Vodka Substance use: never Substance use type: does not use Lack of Transportation: No Lack of Food: Never True Current Housing: I Have Housing Concerned About Future Housing: No Difficulty Paying Gas/Electric Bills: No Difficulty Paying for Meds: No Currently Unemployed: No Education: Bachelor's Degree Difficulty w/ Childcare or Family Care: No Living arrangements: other Additional living arrangements comments: LIVES WITH SIGNIFICANT OTHER Sexual Orientation (if Verbalized by the Patient): Straight or Heterosexual Spiritual care concerns: No Anes - Eval Final PreProcedure Day of Procedure 03/01/22 06:52 Patient weight: overweight Heart: regular rate and rhythm Lungs: clear to auscultation Airway: Mallampati scale class II Neurological: alert and oriented Last oral intake: >/= 8 hours ASA classification: II Emergent: no Anesthetic plan: proceed Anesthesia type and monitoring: general ETT and standard monitoring Results Review: All pre-operative results and documents have been reviewed as part of the pre-operative evaluation. Informed Consent: The patient's anesthetic plan and its attendant risks and benefits were discussed with the patient/family/POA. Questions were solicited and answers provided to the satisfaction of the patient/family/POA.
--- NOTE | 2022-03-01 07:04 | WPDHPUPDATE1 ---
History and Physical Update Update Date/Time: 03/01/22 07:04 History and Physical has been reviewed, including an updated exam of the patient. There are NO changes in the patient's condition. Risks, benefits, and alternatives have been discussed and questions answered. Patient agrees to proceed with procedure.
[2022-03-01] MEDS: ALVIMOPAN 12 MG CAPSULE PO (07:09)
[2022-03-01] MEDS: ceFAZolin 2 GM/D5W 50 ML 2 GM/50 ML BAG IVPB (07:40)
--- NOTE | 2022-03-01 10:10 | SUR.OPER ---
Frozen specimen collected and sent to Pathology per KYA Ramírez. Received by [place] in Path.
--- NOTE | 2022-03-01 11:14 | P.OP_ITS ---
Procedure Note - Detailed Date of Procedure 03/01/22 Pre-op Diagnosis Diverticulitis with Perforation Post-op Diagnosis Same Procedure Performed See Dr. Naranjo surgical operative report. I undertook observation release of colon from posterior surface of cervix Surgeon Aldair Perdue MD Anesthesia General Indications this 46 old female with suspected perforated diverticulum intraoperatively and was asked to see conserving obliterated cul-de-sac. Dr. coates had freed port of the colon. Findings the cul-de-sac was completely obliterated. No I was able to release the cervix from the posterior surface of the sigmoid. Cul-de-sac was still still obliter ated. The it appeared that the uterine cervix small portion of the uterine fundus had been dissected in 2 and that was a question of what was abnormal at that point. Was able to free that portion of the colon and saw no evidence of anything cancerous. I did de gowned and looked below and the cervix was grossly normal. At that point Dr. Coates proceeded with his procedure Description of Procedure see above Estimated Blood Loss 5 Drains No Packing No Pathology None sent Complications No immediate complications Condition Stable Disposition No change
[2022-03-01] MEDS: ceFAZolin SODIUM 1 GM VIAL 2 GM IV PUSH (12:43)
[2022-03-01] MEDS: BUPIVACAINE/EPINEPHRINE 0.5% 30 ML VIAL 60 ML INFILTRATE (12:44)
[2022-03-01] MEDS: fentaNYL CITRATE INJ (*CRX) 100 MCG/2 ML VIAL 25 MCG IV PUSH ×7 (15:29→17:32)
--- NOTE | 2022-03-01 16:37 | W.PM.PROC2 ---
Procedure Note - Detailed Date of Procedure 03/01/22 Pre-op Diagnosis Diverticulitis with Perforation Post-op Diagnosis Other ( perforated diverticulitis, severe pelvic inflammation and fibrosis) Procedure Performed attempted laparoscopic sigmoidectomy, biopsy left pelvic peritoneum, open colorectal resection with hand sewn low pelvic colorectal anastomosis, creation diverting loop ileostomy. Surgeon Hugo Rico MD Produce Associate Roni Patrick MD Anesthesia General and Local ( 0.5% Marcaine with epinephrine) Indications patient was noted to have an episode of diverticulitis last August. This was treated with oral antibiotics after an emergency room visit. She had undergone a negative colonoscopy year earlier in August. She developed another episode of severe diverticulitis in early December. She was treated as an inpatient with IV antibiotics. The diverticulitis had perforation and small pockets of free air but did go on to heal. Patient is taken to surgery now for sigmoidectomy to prevent further episodes. Findings The surgery was exceptionally difficult due to severe retroperitoneal inflammation and fibrosis predominantly below the sacral promontory. There was also retroperitoneal inflammation proximal to this but nothing as severe as in the pelvis. Uterus suggested fibroids and both ovaries and tubes appeared normal. There was no evidence of an abscess. The distal sigmoid and upper rectum were involved in this severe inflammatory process. Evaluating and managing this was very difficult. The surgery itself was usually done in 2-3 hours and this lasted nearly 7 hours. My partner, Dr. Roni Patrick, was called to assist me with this extremely difficult surgery and was there for all of the significant portions of the operation and probably 90% of the operative time. The fibrosis made the ureter very difficult to find but eventually this was done. It did not show any signs of entrapment. On freeing some left pelvic sidewall adhesions of the sigmoid colon, there was fibrotic and nodular peritoneum in the deep left pelvis that I was suspicious may be malignancy. It was extremely dense. A good piece of this peritoneum was excised and sent for frozen section. Frozen section showed only inflammation. The anterior aspect of the distal sigmoid and the upper rectum was densely adherent to the back of the uterus. I called Dr. Belen Perdue, cognos analyst, to the operating room to also evaluate for the possibility of uterine malignancy. Please see his operative note. He found no evidence of uterine cancer. We were able to mobilize the sigmoid and upper rectum off the back of the uterus and find some normal pliable rectum. the inflammatory response anterior to this, however, tilted the rectum towards the pelvis such that an EEA could not be delivered for an effective stapled anastomosis. Banding this, a difficult hand-sewn colorectal anastomosis to the mid rectum was performed. This too was quite difficult as the rectum was angled towards the pelvis rather than having its normal mobility. The inflammation causing this angulation was extremely intense and was associated with fibrosis. Possibility of retroperitoneal fibrosis in the pelvis was not evident on preoperative imaging but is a concern. Because of the difficulty with the anastomosis, a diverting loop ileostomy was also created. Description of Procedure Patient was taken to the operating room and induced into general anesthesia. She was placed in Chidi stirrups in lithotomy. Rectal irrigation rectal tube were placed. Burr catheter was placed. The abdomen was prepped and draped. The incision for the hand access port was marked in the lower abdominal midline above the pubis. Local was infiltrated into this area. Incision was made and dissection was carried down through the subcutaneous to the muscular fascia. The fascia was divided in the midline. Some of the rectus fibers did cross, but we continued o
--- NOTE | 2022-03-01 17:05 | SUR.PHASEI ---
EXTRACTION SUPERVISOR tried to give report to floor RN at [phone] and that RN has to call back for report.
--- NOTE | 2022-03-01 17:53 | ADMGEN ---
This patient, Christin Momin, was admitted to Medical Room 249-01. Patient/family oriented to hospital policies and general routines including ID bracelet, bed and alarms, visiting hours, pain management, procedures, bathroom and other care routines, personal items, smoking policy, room service/diet, and visiting hours. Information on how to activate the Rapid Response Team has been discussed. Patient/Family are encouraged to report perceived risks to care and to ask questions if they do not understand what they are told or what they should do.
[2022-03-01] MEDS: IBUPROFEN IV 800 MG/200 ML 800 MG/200 ML BAG 400 MG IVPB (18:20)
[2022-03-01] MEDS: LACTATED RINGERS 1,000 ML 100 ML IV CONT (19:25)
[2022-03-01] MEDS: FAMOTIDINE 20 MG/2 ML VIAL IV PUSH (20:40)
[2022-03-01] MEDS: oxyCODONE/ACETAMINOPHEN (*CRX) 5-325 MG TABLET 1 TABLET PO (20:40)
[2022-03-01] MEDS: buPROPion HCL XL (24 HR) 150 MG TABCR PO (20:40)
[2022-03-02] MEDS: IBUPROFEN IV 800 MG/200 ML 800 MG/200 ML BAG 400 MG IVPB ×4 (00:22→17:08)
[2022-03-02] MEDS: oxyCODONE/ACETAMINOPHEN (*CRX) 5-325 MG TABLET 1 TABLET PO ×2 (03:11→15:47)
[2022-03-02 03:14] VITALS: BP 103/64; PULSE 71; RESP 17; TEMP 36.6; O2SAT 99
[2022-03-02 05:38] LABS: Hematocrit 30.2 % (37.0-47.0); Hemoglobin 9.6 g/dL (12.0-15.0); Mean Corpuscular HGB Conc 31.8 g/dl (32-36); Mean Corpuscular Hemoglobin 29.4 pg (26-34); Mean Corpuscular Volume 92.4 fl (80-100); Mean Platelet Volume 9.7 fl (7.4-10.4); Platelet Count Result 342 k/mm3 (150-375); Red Blood Count 3.27 M/mm3 (4.2-5.4); White Blood Count 12.9 K/mm3 (4.5-10.0)
[2022-03-02 05:53] LABS: Anion Gap 2 mmol/L (8-16); Blood Urea Nitrogen 13 mg/dL (7-17); Carbon Dioxide 29 mmol/L (22-30); Chloride 102 mmol/L (98-107); Estimated CRCL calculation 65 ml/min; Estimated Glomerular Filt Rate > 60; Glucose 111 mg/dL (65-110); Potassium 3.7 mmol/L (3.4-5.0); Sodium 133 mmol/L (137-145)
[2022-03-02] MEDS: LACTATED RINGERS 1,000 ML 100 ML IV CONT (06:25)
[2022-03-02] MEDS: ENOXAPARIN 40 MG/0.4 ML SYRINGE SUB-Q (08:41)
[2022-03-02] MEDS: FAMOTIDINE 20 MG/2 ML VIAL IV PUSH (08:42)
--- NOTE | 2022-03-02 09:58 | PM.PNGS ---
Progress Note: A&P Assessment and Plan (1) Diverticulitis of large intestine with perforation: Code(s): K57.20 - Diverticulitis of large intestine with perforation and abscess without bleeding Status: Chronic Assessment and Plan: Post-op day 1 attempted laparoscopic sigmoidectomy converted to open colorectal resection with hand sewn low pelvic colorectal anastomosis, creation diverting loop ileostomy, bx left pelvic peritoneum. The surgery was exceptionally difficult as she was found to have severe retroperitoneal inflammation and fibrosis (see operative note). She is doing well this morning. Pain is controlled. Will advance to full liquids. Encouraged getting up to chair and ambulating as tolerated. We will consult wound/ostomy nurses for education for the new ileostomy. Pathology pending. Repeat labs tomorrow. (2) Anxiety: Code(s): F41.9 - Anxiety disorder, unspecified Status: Chronic Assessment and Plan: Bupropion continued. Stable with no complaints of anxiety this morning. Plan I have discussed the patient's case and plan of care with Dr. Rico. Subjective Subjective Date/Time Seen: 03/02/22 09:58 Post Op day: 1 (attempted laparoscopic sigmoidectomy, biopsy left pelvic peritoneum, open colorectal resection with hand sewn low pelvic colorectal anastomosis, creation diverting loop ileostomy) Patient reports: tolerating liquids well and afebrile Interval history: Patient seen and examined this morning. She has noticed gas coming through the ileostomy this morning. Pain is controlled this morning. She denies nausea or vomiting. She has a Burr in place. She got up to the chair last night and plans to today a few times. No other complaints at this time. Review of Systems Review of Systems: All systems reviewed & are unremarkable except as noted in HPI and below Constitutional: Constitutional: Reports as per HPI, Reports no additional constitutional complaints, Denies chills, Denies fever(s) and Denies headache(s) Cardiovascular: Cardiovascular: Reports no additional cardiovascular complaints, Denies chest pain and Denies leg edema Respiratory: Respiratory: Reports no additional respiratory complaints, Denies cough and Denies dyspnea Gastrointestinal: Gastrointestinal: Reports as per HPI and Reports no additional gastrointestinal complaints Neurologic: Reports system reviewed and no additional complaints, except as documented, Denies Abnormal speech present and Denies focal weakness Exam Const: General: comfortable, no acute distress and awake Orientation/consciousness: patient oriented x3 Resp: Effort & Inspection: normal respiratory effort Auscultation: clear to auscultation bilaterally Cardio: Rate: regular rate Rhythm: regular rhythm GI: Inspection: non-distended, incision (dressing dry and intact, trochar incision dry and glue intact) and other (Ileostomy with gas and small amount of green liquid in bag) GI Palp: Yes Soft to palpation, Yes Tenderness to palpation present (GI) (incisional) and No Guarding due to palpation present (GI) Auscultation: normal bowel sounds Neuro: General: moves all extremities and no focal motor deficits Extrem: General: no calf tenderness and no edema Psych: Mental Status: mental status grossly normal Insight: Good insight present (Psych) Objective Data Vital Signs Vital Signs: Vital Signs - 24 hr 03/01/22 14:44 03/01/22 15:00 03/01/22 15:15 Temperature 99.0 F Pulse Rate 120 H 124 H 134 H Respiratory Rate 20 14 14 Blood Pressure 107/82 119/77 149/90 H Pulse Oximetry 100 100 100 Oxygen Delivery Simple Face Mask Simple Face Mask Simple Face Mask Oxygen Flow Rate 6 6 6 03/01/22 15:30 03/01/22 15:45 03/01/22 16:00 Temperature Pulse Rate 136 H 126 H 107 H Respiratory Rate 16 12 13 Blood Pressure 126/82 115/79 119/78 Pulse Oximetry 96 95 97 Oxygen Delivery Room Air Room Air Room Air Oxygen Flow Rate 03/01/22 16:15 01
[2022-03-02 11:05] VITALS: BP 110/70; PULSE 87; RESP 18; TEMP 36.6; O2SAT 100
[2022-03-02 12:07] VITALS: BMI 26.6
--- NOTE | 2022-03-02 13:27 | WPDANESPN ---
Anes - Prog Note Post-Op Date/Time: 03/02/22 13:27 Cardiovascular status: normal Respiratory status: normal Airway patency: baseline Mental status: baseline Post-Op hydration status: normal Vital Signs: Last Vital Signs Temp 36.6 C 03/02/22 11:05 Pulse 87 03/02/22 11:05 Resp 18 03/02/22 11:05 BP 110/70 03/02/22 11:05 Pulse Ox 100 03/02/22 11:05 O2 Del Method Room Air 03/02/22 08:35 O2 Flow Rate 6 03/01/22 15:15 Pain Score (VAS): 03/31 I/O: Intake & Output 03/01/22 03/02/22 03/02/22 23:59 07:59 15:59 Intake Total 900 1450 880 Output Total 40 700 625 Balance 860 750 255 Laboratory Tests 03/02/22 05:17 03/02/22 05:17 03/02/22 03/02/22 05:17 05:17 WBC 12.9 H RBC 3.27 L Hgb 9.6 L Hct 30.2 L MCV 92.4 MCH 29.4 MCHC 31.8 L RDW 15.0 H Plt Count 342 MPV 9.7 Sodium 133 L Potassium 3.7 Chloride 102 Carbon Dioxide 29 Anion Gap 2 L BUN 13 Creatinine 0.80 Estim Creat Clear Calc 65 Estimated GFR > 60 Glucose 111 H Calcium 8.0 L Post-procedural complaints: none Patient Feedback: Patient satisfied with anesthetic care.
--- NOTE | 2022-03-02 13:32 | WPDANESPN ---
Anes - Prog Note Post-Op Date/Time: 03/02/22 13:32 Cardiovascular status: normal Respiratory status: normal Airway patency: baseline Mental status: baseline Post-Op hydration status: normal Vital Signs: Last Vital Signs Temp 36.6 C 03/02/22 11:05 Pulse 87 03/02/22 11:05 Resp 18 03/02/22 11:05 BP 110/70 03/02/22 11:05 Pulse Ox 100 03/02/22 11:05 O2 Del Method Room Air 03/02/22 08:35 O2 Flow Rate 6 03/01/22 15:15 Pain Score (VAS): 0 I/O: Intake & Output 03/01/22 03/02/22 03/02/22 23:59 07:59 15:59 Intake Total 900 1450 880 Output Total 40 700 625 Balance 860 750 255 Laboratory Tests 03/02/22 05:17 03/02/22 05:17 03/02/22 03/02/22 05:17 05:17 WBC 12.9 H RBC 3.27 L Hgb 9.6 L Hct 30.2 L MCV 92.4 MCH 29.4 MCHC 31.8 L RDW 15.0 H Plt Count 342 MPV 9.7 Sodium 133 L Potassium 3.7 Chloride 102 Carbon Dioxide 29 Anion Gap 2 L BUN 13 Creatinine 0.80 Estim Creat Clear Calc 65 Estimated GFR > 60 Glucose 111 H Calcium 8.0 L Post-procedural complaints: none Patient Feedback: Patient satisfied with anesthetic care.
[2022-03-02 15:08] VITALS: BP 105/61; PULSE 91; RESP 16; TEMP 36.6; O2SAT 98
[2022-03-02 18:38] VITALS: BP 108/56; PULSE 98; RESP 16; TEMP 36.6; O2SAT 97
[2022-03-02] MEDS: LACTATED RINGERS 1,000 ML 80 ML IV CONT (18:44)
[2022-03-02 19:25] VITALS: BP 107/62; PULSE 72; RESP 18; TEMP 36.1; O2SAT 98
[2022-03-02] MEDS: buPROPion HCL XL (24 HR) 150 MG TABCR PO (22:08)
[2022-03-02] MEDS: FAMOTIDINE 20 MG TABLET PO (22:08)
[2022-03-02] MEDS: oxyCODONE/ACETAMINOPHEN (*CRX) 10-325 MG TABLET 1 TAB PO (22:08)
[2022-03-03] MEDS: IBUPROFEN IV 800 MG/200 ML 800 MG/200 ML BAG 400 MG IVPB ×2 (00:16→06:19)
[2022-03-03 04:54] LABS: Hematocrit 26.7 % (37.0-47.0); Hemoglobin 8.5 g/dL (12.0-15.0); Mean Corpuscular HGB Conc 31.8 g/dl (32-36); Mean Corpuscular Volume 94.3 fl (80-100); Mean Platelet Volume 10.1 fl (7.4-10.4); Platelet Count Result 253 k/mm3 (150-375); Red Blood Count 2.83 M/mm3 (4.2-5.4); Red Cell Distribution Width 15.4 % (11.5-14.5); White Blood Count 6.6 K/mm3 (4.5-10.0)
[2022-03-03 05:22] VITALS: BP 116/67; PULSE 73; RESP 20; TEMP 36.1; O2SAT 91
[2022-03-03 05:24] LABS: Anion Gap 0 mmol/L (8-16); Blood Urea Nitrogen 12 mg/dL (7-17); Calcium 7.8 mg/dL (8.4-10.2); Carbon Dioxide 31 mmol/L (22-30); Chloride 103 mmol/L (98-107); Estimated CRCL calculation 73 ml/min; Estimated Glomerular Filt Rate > 60; Glucose 94 mg/dL (65-110); Potassium 3.9 mmol/L (3.4-5.0); Sodium 134 mmol/L (137-145)
[2022-03-03] MEDS: FAMOTIDINE 20 MG TABLET PO ×2 (07:55→20:55)
[2022-03-03] MEDS: ENOXAPARIN 40 MG/0.4 ML SYRINGE SUB-Q (07:55)
[2022-03-03] MEDS: LACTATED RINGERS 1,000 ML 80 ML IV CONT (07:58)
[2022-03-03 09:18] VITALS: BP 115/72; PULSE 72; RESP 18; TEMP 36.8; O2SAT 93
--- NOTE | 2022-03-03 10:11 | PM.PNGS ---
Progress Note: A&P Assessment and Plan (1) Diverticulitis of large intestine with perforation: Code(s): K57.20 - Diverticulitis of large intestine with perforation and abscess without bleeding Status: Chronic Assessment and Plan: Doing well postop day 2. Status post difficult sigmoidectomy with colorectal resection and low pelvic hand-sewn colorectal anastomosis. Pain control is good. She has been up and her wound is healing well. H&H is slightly lower but she was anemic to begin with and no significant drop. She has been up walking and doing nicely. Will DC Burr catheter today. Will DC scheduled dose of IV ibuprofen. Advance to soft diet. (2) Ileostomy status: Code(s): Z93.2 - Ileostomy status Status: Acute Assessment and Plan: Wound nurses to see for new ileostomy. Will consult home health to see patient once she is discharged for assistance in ileostomy care. Ileostomy is pink and working well so far. Subjective Subjective Date/Time Seen: 03/03/22 10:11 Post Op day: 2 Patient reports: no new complaints, feels better, pain is less, tolerating liquids well, bowel movement (Ileostomy working well) and afebrile Exam Const: General: comfortable and no acute distress; No confusion Nutritional Appearance: thin Orientation/consciousness: patient oriented x3 and No confusion GI: Inspection: non-distended and incision (Incision dry and healing nicely, ileostomy pink and healthy) GI Palp: Yes Soft to palpation, Yes Tenderness to palpation present (GI), No Guarding due to palpation present (GI) and No Rebound tenderness present Auscultation: normal bowel sounds Neuro: General: patient oriented x3, no focal motor deficits and No confusion Extrem: General: no calf tenderness and no edema Psych: Affect: normal affect Insight: Good insight present (Psych) Judgement: Good judgement present (Psych) Objective Data Vital Signs Vital Signs: Vital Signs - 24 hr 03/02/22 11:05 03/02/22 15:08 03/02/22 18:38 Temperature 36.6 C 36.6 C 36.6 C Pulse Rate 87 91 98 Respiratory Rate 18 16 16 Blood Pressure 110/70 105/61 108/56 L Pulse Oximetry 100 98 97 Oxygen Delivery 03/02/22 19:25 03/02/22 20:00 03/03/22 05:22 Temperature 36.1 C L 36.1 C L Pulse Rate 72 73 Respiratory Rate 18 20 Blood Pressure 107/62 116/67 Pulse Oximetry 98 91 Oxygen Delivery Room Air 03/03/22 09:18 03/03/22 07:55 Temperature 36.8 C Pulse Rate 72 Respiratory Rate 18 Blood Pressure 115/72 Pulse Oximetry 93 Oxygen Delivery Room Air Intake/Output Intake/Output: Intake & Output 02/28/22 03/01/22 03/02/22 03/03/22 23:59 23:59 23:59 23:59 Intake Total 950 4010 2310 Output Total 40 1925 600 Balance 910 2085 1710 Meds/Results Medications: Active Medications Generic Name Dose Route Start Last Admin Trade Name Freq PRN Reason Stop Dose Admin Acetaminophen 500 mg 03/01/22 17:40 Acetaminophen 500 Mg Tablet PO Q6H PRN Mild Pain (1-3) or Fever Bupropion HCl 150 mg 03/01/22 21:00 03/02/22 22:08 Bupropion Hcl Xl (24 Hr) 150 Mg Tabcr PO 150 mg HS MAYA Administration Enoxaparin Sodium 40 mg 03/02/22 09:00 03/03/22 07:55 Enoxaparin 40 Mg/0.4 Ml Syringe SUB-Q 40 mg DAILY MAYA Administration Famotidine 20 mg 03/02/22 21:00 03/03/22 07:55 Famotidine 20 Mg Tablet PO 20 mg Q12HR MAYA Administration Morphine Sulfate 1 mg 03/03/22 09:33 Morphine Sulfate (*Crx) 2 Mg/Ml Inj IV PUSH Q2H PRN Pain Rated 4-6 Morphine Sulfate 2 mg 03/03/22 09:33 Morphine Sulfate (*Crx) 2 Mg/Ml Inj IV PUSH Q2H PRN Pain Rated 7-10 Naloxone HCl 0.1 mg 03/01/22 17:40 Naloxone Hcl 0.4 Mg/Ml Vial IV PUSH Q2M PRN Opiate Reversal Oxycodone/Acetaminophen 1 tablet 03/01/22 17:40 03/02/22 15:47 Oxycodone/Acetaminophen (*Crx) 5-325 Mg Tablet PO 1 tablet Q4H PRN Administration Pain Rated 4-6 Oxycodone/Acetam
[2022-03-03] MEDS: oxyCODONE/ACETAMINOPHEN (*CRX) 5-325 MG TABLET 1 TABLET PO ×2 (11:44→17:25)
[2022-03-03 14:05] VITALS: BP 117/62; PULSE 75; RESP 18; TEMP 36.6; O2SAT 97
--- NOTE | 2022-03-03 17:33 | PC.NURSE ---
Patient is having excessive gas and abdomen tightness. Ostomy is producing stool. Hedge Trimmer contacted exchange to reach out to Dr. Rico to get some gas relief medication.
[2022-03-03 19:58] VITALS: BP 104/66; PULSE 79; RESP 16; TEMP 36.6; O2SAT 96
[2022-03-03] MEDS: oxyCODONE/ACETAMINOPHEN (*CRX) 10-325 MG TABLET 1 TAB PO (20:55)
[2022-03-03] MEDS: SIMETHICONE 80 MG TAB.CHEW PO (20:56)
[2022-03-03] MEDS: buPROPion HCL XL (24 HR) 150 MG TABCR PO (20:57)
[2022-03-04] MEDS: ACETAMINOPHEN 500 MG TABLET PO ×2 (00:38→12:12)
[2022-03-04] MEDS: oxyCODONE/ACETAMINOPHEN (*CRX) 5-325 MG TABLET 1 TABLET PO ×4 (02:24→17:47)
[2022-03-04 05:38] VITALS: BP 117/77; PULSE 82; RESP 16; TEMP 37.1; O2SAT 93
[2022-03-04 06:11] LABS: Basophils Percent Auto 0.5 % (0.2-1.2); Eosinophils Absolute Auto 0.2 K/mm3 (0-0.3); Eosinophils Percent Auto 3.5 % (0-4.4); Hematocrit 27.8 % (37.0-47.0); Hemoglobin 8.6 g/dL (12.0-15.0); Immature Granulocyte Absolute 0.02 K/mm3 (0.00-0.031); Immature Granulocyte Percent A 0.3 % (0-0.5); Lymphocytes Absolute Auto 1.96 K/mm3 (0.9-3.2); Lymphocytes Percent Auto 33.9 % (18.3-44.2); Mean Corpuscular HGB Conc 30.9 g/dl (32-36); Mean Corpuscular Hemoglobin 29.3 pg (26-34); Mean Corpuscular Volume 94.6 fl (80-100); Mean Platelet Volume 10.2 fl (7.4-10.4); Monocytes Absolute Auto 0.3 K/mm3 (0.1-0.6); Monocytes Percent Auto 5.9 % (2.6-8.5); Neutrophils Absolute Auto 3.2 K/mm3 (1.3-6.7); Neutrophils Percent Auto 55.9 % (45.5-73.1); Platelet Count Result 280 k/mm3 (150-375); Red Blood Count 2.94 M/mm3 (4.2-5.4); Red Cell Distribution Width 15.3 % (11.5-14.5); White Blood Count 5.8 K/mm3 (4.5-10.0)
[2022-03-04 06:16] LABS: Anion Gap 2 mmol/L (8-16); Blood Urea Nitrogen 10 mg/dL (7-17); Calcium 7.6 mg/dL (8.4-10.2); Carbon Dioxide 30 mmol/L (22-30); Chloride 105 mmol/L (98-107); Estimated CRCL calculation 73 ml/min; Estimated Glomerular Filt Rate > 60; Glucose 84 mg/dL (65-110); Potassium 3.4 mmol/L (3.4-5.0); Sodium 137 mmol/L (137-145)
--- NOTE | 2022-03-04 06:18 | PC.NURSE ---
Patient emotional at beginning of shift concerning pain management, surgical incision and ostomy and diet. Sat with pt, gave emotional support, explained concerns.Encouraged pt to walk in monet, states she will in am . Pt given simethicone, Percocet 10mg x1, then pt requested Tylenol later in shift. Pt able to empty ostomy bag. Instructions given on wound care. Assessment at 0600, pt refused pain meds at this time. States she got some sleep after percocet 10mg and tylenol.
--- NOTE | 2022-03-04 06:28 | PC.NURSE ---
Addendum-pt also received Percocet 5mg during night--0230... Pt resting at present- easily awaken
[2022-03-04 08:00] VITALS: BP 122/74; PULSE 83; RESP 18; TEMP 36.5; O2SAT 99
[2022-03-04] MEDS: SIMETHICONE 80 MG TAB.CHEW PO ×4 (09:02→20:11)
[2022-03-04] MEDS: FAMOTIDINE 20 MG TABLET PO ×2 (09:02→20:11)
[2022-03-04] MEDS: ENOXAPARIN 40 MG/0.4 ML SYRINGE SUB-Q (09:02)
--- NOTE | 2022-03-04 14:07 | PM.PNGS ---
Progress Note: A&P Assessment and Plan (1) Diverticulitis of large intestine with perforation: Code(s): K57.20 - Diverticulitis of large intestine with perforation and abscess without bleeding Status: Chronic Assessment and Plan: She continues to do well this morning. She is tolerating solid food and has good ostomy output. Her pain is well controlled with oral pain medications. Her incision looks good without evidence of wound complications. She seems to be in good spirits and is comfortable taking care of her ileostomy. She is still mildly anemic but her hemoglobin has stayed stable at 8.6 the last 2 days. Her IV fluids were hep-locked and she should start to diurese soon. Will see how she does with diet today. Maybe home tomorrow. Subjective Subjective Date/Time Seen: 03/04/22 14:07 Interval history: The patient is now postop day 3 from low anterior rectosigmoid resection and hand-sewn colorectal anastomosis with placement of a protective loop ileostomy. She is stable day sitting up in a chair when I saw her. She is tolerating a regular diet but yesterday ate something with gravy which made her very bloated. She has good output through her protective loop ileostomy. Her pain is well controlled. She does complain of some swelling in the dependent portions of her legs and back. I explained to her that the swelling is a normal consequence of fluid retention after prolonged surgery and over time she would diurese and the swelling will improve. Review of Systems Review of Systems: The remainder of the review of systems to include constitutional, HEENT, cardiovascular, respiratory, GI, , integumentary, musculoskeletal, endocrine, immunologic, hematologic, psychiatric, and neurologic are all negative except for which is mentioned above in the HPI. Exam Resp: Effort & Inspection: normal respiratory effort Auscultation: clear to auscultation bilaterally Cardio: Rate: regular rate Rhythm: regular rhythm GI: Other: Abdomen soft and nondistended. Midline incision is healing well without erythema or cellulitis. The loop ileostomy is functioning well without retraction with a viable stoma. There is good succus output. The ostomy appliance was seated well and there is no leaking around the ostomy. Neuro: Speech: normal speech Psych: Mental Status: mental status grossly normal Affect: normal affect Objective Data Vital Signs Vital Signs: Vital Signs - 24 hr 03/03/22 19:58 03/04/22 05:38 03/04/22 09:22 Temperature 36.6 C 37.1 C Pulse Rate 79 82 Respiratory Rate 16 16 Blood Pressure 104/66 117/77 Pulse Oximetry 96 93 Oxygen Delivery Room Air 03/04/22 08:00 Temperature 36.5 C Pulse Rate 83 Respiratory Rate 18 Blood Pressure 122/74 Pulse Oximetry 99 Oxygen Delivery Intake/Output Intake/Output: Intake & Output 03/01/22 03/02/22 03/03/22 03/04/22 23:59 23:59 23:59 23:59 Intake Total 950 4010 4090 630 Output Total 40 1925 850 Balance 910 2085 3240 630 Meds/Results Medications: Active Medications Generic Name Dose Route Start Last Admin Trade Name Freq PRN Reason Stop Dose Admin Acetaminophen 500 mg 03/01/22 17:40 03/04/22 12:12 Acetaminophen 500 Mg Tablet PO 500 mg Q6H PRN Administration Mild Pain (1-3) or Fever Bupropion HCl 150 mg 03/01/22 21:00 03/03/22 20:57 Bupropion Hcl Xl (24 Hr) 150 Mg Tabcr PO 150 mg HS MAYA Administration Enoxaparin Sodium 40 mg 03/02/22 09:00 03/04/22 09:02 Enoxaparin 40 Mg/0.4 Ml Syringe SUB-Q 40 mg DAILY MAYA Administration Famotidine 20 mg 03/02/22 21:00 03/04/22 09:02 Famotidine 20 Mg Tablet PO 20 mg Q12HR MAYA Administration Morphine Sulfate 1 mg 03/03/22 09:33 Morphine Sulfate (*Crx) 2 Mg/Ml Inj IV PUSH Q2H PRN Pain Rated 4-6 Morphine Sulfate 2 mg 03/03/22 09:33 Morphine Sulfate (*Crx) 2 Mg/Ml Inj IV PUSH Q2H PRN Pain Rated 7-10
[2022-03-04 16:00] VITALS: BP 123/88; PULSE 96; RESP 18; TEMP 36.6; O2SAT 100
[2022-03-04] MEDS: buPROPion HCL XL (24 HR) 150 MG TABCR PO (20:11)
[2022-03-04 20:36] VITALS: BP 143/90; PULSE 90; RESP 20; TEMP 36.8; O2SAT 100
[2022-03-04] MEDS: oxyCODONE/ACETAMINOPHEN (*CRX) 10-325 MG TABLET 1 TAB PO (21:47)
[2022-03-05] MEDS: oxyCODONE/ACETAMINOPHEN (*CRX) 5-325 MG TABLET 1 TABLET PO ×2 (03:11→10:40)
[2022-03-05 05:37] LABS: Basophils Percent Auto 0.4 % (0.2-1.2); Eosinophils Absolute Auto 0.3 K/mm3 (0-0.3); Eosinophils Percent Auto 4.9 % (0-4.4); Hemoglobin 9.1 g/dL (12.0-15.0); Immature Granulocyte Absolute 0.01 K/mm3 (0.00-0.031); Immature Granulocyte Percent A 0.2 % (0-0.5); Lymphocytes Absolute Auto 1.88 K/mm3 (0.9-3.2); Lymphocytes Percent Auto 36.8 % (18.3-44.2); Mean Corpuscular HGB Conc 31.4 g/dl (32-36); Mean Corpuscular Volume 92.4 fl (80-100); Monocytes Absolute Auto 0.3 K/mm3 (0.1-0.6); Monocytes Percent Auto 6.1 % (2.6-8.5); Neutrophils Absolute Auto 2.6 K/mm3 (1.3-6.7); Neutrophils Percent Auto 51.6 % (45.5-73.1); Platelet Count Result 314 k/mm3 (150-375); Red Blood Count 3.14 M/mm3 (4.2-5.4); White Blood Count 5.1 K/mm3 (4.5-10.0)
[2022-03-05 05:42] VITALS: BP 119/84; PULSE 74; RESP 20; TEMP 36.8; O2SAT 98
[2022-03-05 05:51] LABS: Anion Gap 2 mmol/L (8-16); Blood Urea Nitrogen 6 mg/dL (7-17); Calcium 8.1 mg/dL (8.4-10.2); Carbon Dioxide 32 mmol/L (22-30); Chloride 103 mmol/L (98-107); Estimated CRCL calculation 73 ml/min; Estimated Glomerular Filt Rate > 60; Glucose 94 mg/dL (65-110); Potassium 3.4 mmol/L (3.4-5.0); Sodium 137 mmol/L (137-145)
[2022-03-05 07:50] VITALS: BP 138/81; PULSE 84; RESP 12; TEMP 36.9; O2SAT 98
[2022-03-05] MEDS: ENOXAPARIN 40 MG/0.4 ML SYRINGE SUB-Q (08:56)
[2022-03-05] MEDS: FAMOTIDINE 20 MG TABLET PO (08:57)
[2022-03-05] MEDS: SIMETHICONE 80 MG TAB.CHEW PO ×2 (08:57→13:27)
--- NOTE | 2022-03-05 13:12 | PM.PNGS ---
Progress Note: A&P Assessment and Plan (1) Diverticulitis of large intestine with perforation: Code(s): K57.20 - Diverticulitis of large intestine with perforation and abscess without bleeding Status: Chronic Assessment and Plan: The patient is now status post low anterior rectosigmoid resection with hand-sewn colorectal anastomosis. Her diverting protective loop ileostomy is functioning well. She is tolerating regular diet and her pain is well controlled on oral pain medications. She remains afebrile white blood cell count is normal. She wishes to go home and I feel she can be discharged today without any problems. She has a follow-up appointment to see Dr. Rico on March 16, 2022. She is to resume all her home medications and was Y[facility] prescription for Percocet and Toradol which were sent for pharmacy. Subjective Subjective Date/Time Seen: 03/05/22 13:12 Interval history: The patient is doing well today. She is tolerating solid food without difficulty and pain is well-controlled with Percocet. Her ileostomy is productive and her incision is healing well. Her white blood cell count is normal today and her hemoglobin has increased to 9.1 from 8.6. She remains afebrile and she was able to ambulate in the room without difficulty. Exam Resp: Effort & Inspection: normal respiratory effort Auscultation: clear to auscultation bilaterally Cardio: Rate: regular rate Rhythm: regular rhythm GI: Other: Her abdomen is soft and nondistended. Midline incision is healing well without evidence of redness or drainage. the loop ileostomy in the right side of the abdomen is viable and productive of small bowel contents. Neuro: General: gait normal Speech: normal speech Sensory Exam: normal sensation Extrem: General: normal to inspection Psych: Mental Status: mental status grossly normal Affect: normal affect Objective Data Vital Signs Vital Signs: Vital Signs - 24 hr 03/04/22 16:00 03/04/22 20:36 03/05/22 05:42 Temperature 36.6 C 36.8 C 36.8 C Pulse Rate 96 90 74 Respiratory Rate 18 20 20 Blood Pressure 123/88 143/90 H 119/84 Pulse Oximetry 100 100 98 Oxygen Delivery 03/05/22 07:50 03/05/22 09:08 Temperature 36.9 C Pulse Rate 84 Respiratory Rate 12 Blood Pressure 138/81 Pulse Oximetry 98 Oxygen Delivery Room Air Intake/Output Intake/Output: Intake & Output 03/02/22 03/03/22 03/04/22 03/05/22 23:59 23:59 23:59 23:59 Intake Total 4010 4090 1420 400 Output Total 1925 850 Balance 2085 3240 1420 400 Meds/Results Medications: Active Medications Generic Name Dose Route Start Last Admin Trade Name Freq PRN Reason Stop Dose Admin Acetaminophen 500 mg 03/01/22 17:40 03/04/22 12:12 Acetaminophen 500 Mg Tablet PO 500 mg Q6H PRN Administration Mild Pain (1-3) or Fever Bupropion HCl 150 mg 03/01/22 21:00 03/04/22 20:11 Bupropion Hcl Xl (24 Hr) 150 Mg Tabcr PO 150 mg HS MAYA Administration Enoxaparin Sodium 40 mg 03/02/22 09:00 03/05/22 08:56 Enoxaparin 40 Mg/0.4 Ml Syringe SUB-Q 40 mg DAILY MAYA Administration Famotidine 20 mg 03/02/22 21:00 03/05/22 08:57 Famotidine 20 Mg Tablet PO 20 mg Q12HR MAYA Administration Methocarbamol 562,500 mg 03/05/22 13:11 Methocarbamol 750 Mg Tablet PO PRN PRN Spasms Morphine Sulfate 1 mg 03/03/22 09:33 Morphine Sulfate (*Crx) 2 Mg/Ml Inj IV PUSH Q2H PRN Pain Rated 4-6 Morphine Sulfate 2 mg 03/03/22 09:33 Morphine Sulfate (*Crx) 2 Mg/Ml Inj IV PUSH Q2H PRN Pain Rated 7-10 Naloxone HCl 0.1 mg 03/01/22 17:40 Naloxone Hcl 0.4 Mg/Ml Vial IV PUSH Q2M PRN Opiate Reversal Oxycodone/Acetaminophen 1 tablet 03/01/22 17:40 03/05/22 10:40 Oxycodone/Acetaminophen (*Crx) 5-325 Mg Tablet PO 1 tablet Q4H PRN Administration Pain Rated 4-6 Oxycodone/Acetaminophen 1 tab 03/01/22 17:40 03/04/22 21:47 Oxycodone/Acetaminophen
--- NOTE | 2022-03-09 18:39 | PM.DS ---
DS: Admitting Diagnosis Discharge Date 03/05/22 Admitting Diagnosis Diverticulitis DS: Discharge Diagnosis Discharge Diagnosis (1) Diverticulitis of large intestine with perforation: Code(s): K57.20 - Diverticulitis of large intestine with perforation and abscess without bleeding Status: Chronic (2) Ileostomy status: Code(s): Z93.2 - Ileostomy status Status: Acute DS: Summary Hospital Course Hospital Course: Patient had home bowel preparation and was taken to surgery on the day of admission 03/01/2022 for hand access laparoscopic sigmoidectomy. The procedure was complicated by very unusual and severe fibrosis and inflammatory response of the soft tissues in the pelvis. 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 Biopsies an intraoperative milk drying machine operator consultation with Dr. Rivera were both negative. Dr. Patrick helped me with the surgery which was exceptionally difficult. Hand-sewn low anterior resection after sigmoidectomy was performed. We were unable to do an EEA anastomosis due to anterior angulation of the rectum by the inflammatory, fibrotic process. The anastomosis was protected with a diverting loop ileostomy in the right lower quadrant. Postoperatively, the patient had an uneventful recovery. Her ileostomy began working almost immediately. She had her diet was gradually advanced. She was ambulating independently in comfortable on oral analgesics. She was seen by the enterostomal therapy specialists nurses. Home health for stoma care was arranged. She was able to be discharged in good condition on 03/05/2022. Status at Discharge Functional status at discharge: independent ambulation Overall status at discharge: patient is progressing back to baseline Time Spent with Patient Time attestation: Total time spent providing and/or coordinating discharge services: Time spent: Less than 30 minutes DS: Data Data Completed and Pending Completed studies during hospitalization: Pending at discharge 03/01/22 09:35 Surgical [PTH] Routine Discharge Plan Discharge Attending physician on discharge: Hugo Rico Consulting providers: Aldair Sanches ; Fidelina Staley Patient Disposition: Home Health Service Activity: may shower, no straining and as tolerated Diet: regular Wound Care Instructions: keep dressing dry, remove dressing to shower and change dressing daily Discharge Instructions: Per Care Coordination, patient to go home with [facility] ([phone]) for fci and ostomy teaching. Agency will contact patient to arrange initial visit. Ambulate 3-4 x per day and as tolerated. No lifting over 15-20lbs. May bathe or shower. Okay to shower over ileostomy appliance but remove dressings from abdominal wound. Stairs are OK. May drive a car in 3 days. Remove any dressings before shower and replace after. Continue to place dry gauze dressing over abdominal incision 1st 3 days after discharge. On 4th day after discharge, can leave open. Patient Instructions: Antibiotic Form Stand Alone Forms: General Discharge Information Follow-up/Referrals: Hugo Rico MD [Physician] - Keep Reg. Scheduled Appt. (Keep scheduled appointment with Dr. Rico.) Discharge Medications: New ketorolac 10 mg tablet 10 mg PO Q6H 4 Days Qty: 16 0RF oxycodone-acetaminophen [Percocet] 5-325 mg tablet 1 - 2 tablet PO Q6H PRN (Reason: pain) Qty: 20 0RF Continued methocarbamol 750 mg tablet 1 tablet PO QHS Label Comments: STATES TAKES EVERY NOC bupropion HCl 150 mg tablet extended release 24 hr 150 mg PO HS Date of admission: 03/01/22 17:40 Primary Care Provider: Ian,Nicole Admitting Provider: Hugo Rico Attending physician on admission: Roni Patrick Condition: Improved
== END 2022-03-05 15:20 | disposition home health service (06) | DRG 331 ==
LOC: ANH2MED 17:41
PROVIDERS: Nurse Practitioner Family; Admitting Provider Surgery; PCP Physician Assistant; Visit Provider Surgery
PROC: 0D1E4Z4 Bypass Large Intestine to Cutaneous, Percutaneous Endoscopic Approach (ICD-10-PCS; principal; 2022-03-01 07:30)
DX: K57.20 Diverticulitis of large intestine with perforation and abscess without bleeding (principal); F41.9 Anxiety disorder, unspecified
CPT/HCPCS: 36415; 80048; 85025; 85027; 88305; 88307; 88331; A9270; C1713; C1729; J0690; J1100; J1170; J1650; J1741; J1885; J2250; J2370; J2405; J2704; J2710; J3010; J7120

== ENCOUNTER 2022-03-07 16:07 | Outpatient (NON) | payer BC, SELFPAY ==
[2022-03-07 16:52] LABS: Hematocrit 37.9 % (37.0-47.0); Mean Corpuscular HGB Conc 31.7 g/dl (32-36); Mean Corpuscular Volume 91.5 fl (80-100); Mean Platelet Volume 10.2 fl (7.4-10.4); Platelet Count Result 500 k/mm3 (150-375); Red Blood Count 4.14 M/mm3 (4.2-5.4); Red Cell Distribution Width 15.5 % (11.5-14.5); White Blood Count 10.5 K/mm3 (4.5-10.0)
[2022-03-07 17:06] LABS: Alanine Aminotransferase 30 U/L (6-35); Albumin Level 4.2 g/dL (3.5-5.1); Alkaline Phosphatase 90 U/L (38-126); Anion Gap 9 mmol/L (8-16); Aspartate Amino Transferase 39 U/L (14-36); Bilirubin,Total 0.4 mg/dL (0.2-1.3); Blood Urea Nitrogen 24 mg/dL (7-17); Carbon Dioxide 27 mmol/L (22-30); Chloride 101 mmol/L (98-107); Estimated Glomerular Filt Rate > 60; Glucose 99 mg/dL (65-110); Potassium 4.5 mmol/L (3.4-5.0); Sodium 137 mmol/L (137-145)
== END 2022-03-07 16:08 | disposition home or self-care (01) ==
LOC: HOME HLTH 16:08
PROVIDERS: PCP Physician Assistant; Visit Provider Surgery
DX: K57.20 Diverticulitis of large intestine with perforation and abscess without bleeding (principal)
CPT/HCPCS: 80053; 85027

== ENCOUNTER 2022-03-16 09:50 | Outpatient (CLI) | payer BC, SELFPAY ==
[2022-03-16 10:53] LABS: Hematocrit 34.6 % (37.0-47.0); Hemoglobin 11.3 g/dL (12.0-15.0); Mean Corpuscular HGB Conc 32.7 g/dl (32-36); Mean Corpuscular Volume 88.7 fl (80-100); Mean Platelet Volume 9.6 fl (7.4-10.4); Platelet Count Result 507 k/mm3 (150-375); Red Cell Distribution Width 14.8 % (11.5-14.5); White Blood Count 6.1 K/mm3 (4.5-10.0)
[2022-03-16 11:02] LABS: Anion Gap 8 mmol/L (8-16); Blood Urea Nitrogen 17 mg/dL (7-17); Carbon Dioxide 26 mmol/L (22-30); Chloride 97 mmol/L (98-107); Estimated Glomerular Filt Rate > 60; Glucose 88 mg/dL (65-110); Potassium 4.4 mmol/L (3.4-5.0); Sodium 131 mmol/L (137-145)
== END 2022-03-16 09:51 | disposition home or self-care (01) ==
LOC: ANHLAB 09:52
PROVIDERS: PCP Physician Assistant; Visit Provider Surgery
DX: K57.20 Diverticulitis of large intestine with perforation and abscess without bleeding (principal); Z93.2 Ileostomy status
CPT/HCPCS: 36415; 80048; 85027

== ENCOUNTER 2022-04-20 10:10 | Outpatient (CLI) | payer BC, SELFPAY ==
--- NOTE | ~2022-04-20 | XR_ITS ---
EXAMINATION: XR enema water soluble DATE: 04/20/2022 11:15 INDICATION: Post procedural intestinal obstruction, unspecified. TECHNIQUE: A geographic information systems director radiograph was obtained. A catheter was inserted into the patient's rectum. Contra st was infused by gravity. Fluoroscopic spot images and conventional radiographs were obtained. Fluor oscopy exposure time was 0.3 minutes. The total number of images was 21. COMPARISON: CT abdomen and pelvis 12/22/2021 FINDINGS: There is a mild stricture of the sigmoid colon with focal fold thickening. There are scatte red diverticula in the colon. Contrast passes to the diverting ileostomy. IMPRESSION: 1. Mild stricture of the sigmoid colon colon with focal fold thickening, consistent with chronic dive rticulitis. Reviewed, dictated and finalized at location A. SCIENCE AND PLANNING IMPRESSION: 1. Mild stricture of the sigmoid colon colon with focal fold thickening, consis tent with chronic diverticulitis.
== END 2022-04-20 10:11 | disposition home or self-care (01) ==
PROVIDERS: PCP Physician Assistant; Visit Provider Surgery
DX: K91.30 Postprocedural intestinal obstruction, unspecified as to partial versus complete (principal)
CPT/HCPCS: 74270

== ENCOUNTER 2022-04-24 09:56 | Outpatient (CLI) | payer BC, SELFPAY ==
--- NOTE | 2022-04-24 10:50 | ECG_ITS ---
Measurements Intervals [place] Rate: 95 P: 66 AK: 152 QRS: 72 QRSD: 75 T: 73 QT: 336 QTc: 422 Interpretive Statements SINUS RHYTHM BORDERLINE ST ABNORMALITY- ANTEROLAT/INF LEADS BORDERLINE ECG COMPARED TO ECG 02/22/2022 14:40:29 NO SIGNIFICANT CHANGES Electronically Signed On 04-24-2022 11:09:07 TECHNICAL SUPPORT TECHNICIAN by Anthony Mcguire D.O.
[2022-04-24 11:16] LABS: Basophils Percent Auto 0.4 % (0.2-1.2); Eosinophils Absolute Auto 0.1 K/mm3 (0-0.3); Eosinophils Percent Auto 0.5 % (0-4.4); Hematocrit 43.9 % (37.0-47.0); Hemoglobin 15.1 g/dL (12.0-15.0); Immature Granulocyte Absolute 0.03 K/mm3 (0.00-0.031); Immature Granulocyte Percent A 0.3 % (0-0.5); Lymphocytes Absolute Auto 1.96 K/mm3 (0.9-3.2); Lymphocytes Percent Auto 20.1 % (18.3-44.2); Mean Corpuscular HGB Conc 34.4 g/dl (32-36); Mean Corpuscular Hemoglobin 29.3 pg (26-34); Mean Corpuscular Volume 85.2 fl (80-100); Mean Platelet Volume 10.3 fl (7.4-10.4); Monocytes Absolute Auto 0.5 K/mm3 (0.1-0.6); Monocytes Percent Auto 5.2 % (2.6-8.5); Neutrophils Absolute Auto 7.2 K/mm3 (1.3-6.7); Neutrophils Percent Auto 73.5 % (45.5-73.1); Platelet Count Result 498 k/mm3 (150-375); Red Blood Count 5.15 M/mm3 (4.2-5.4); Red Cell Distribution Width 13.7 % (11.5-14.5); White Blood Count 9.7 K/mm3 (4.5-10.0)
[2022-04-24 11:57] LABS: Anion Gap 14 mmol/L (8-16); Blood Urea Nitrogen 64 mg/dL (7-17); Calcium 9.5 mg/dL (8.4-10.2); Carbon Dioxide 21 mmol/L (22-30); Chloride 98 mmol/L (98-107); Estimated Glomerular Filt Rate 40; Glucose 112 mg/dL (65-110); Potassium 3.7 mmol/L (3.4-5.0); Sodium 133 mmol/L (137-145)
== END 2022-04-24 09:57 | disposition home or self-care (01) ==
PROVIDERS: PCP Physician Assistant; Visit Provider Surgery
DX: E86.0 Dehydration (principal); R07.9 Chest pain, unspecified; K57.20 Diverticulitis of large intestine with perforation and abscess without bleeding; K94.13 Enterostomy malfunction; R94.31 Abnormal electrocardiogram [ECG] [EKG]
CPT/HCPCS: 36415; 80048; 85025; 86850; 86900; 86901; 93005

== ENCOUNTER 2022-04-24 16:39 | Observation (INO) | payer BC, SELFPAY ==
--- NOTE | 2022-04-24 16:51 | PM.IMHP ---
H&P: HPI History of Present Illness Date/Time: 04/24/22 16:51 Chief Complaint: Weakness, fatigue Narrative: The patient is a 46-year-old woman who on March 01 of this year was taken to surgery after home bowel preparation for hand access laparoscopic sigmoidectomy. The surgery was much more difficult than and to sip a did due to severe pelvic inflammation and fibrosis. Several attempts that colorectal anastomosis were made and eventually a hand-sewn colorectal anastomosis was performed. A protective loop ileostomy was also performed. Patient has recovered from the surgery and was doing well. In anticipation of closure of the loop ileostomy, the patient underwent a water-soluble contrast enema on 04/20/2022 to check the patency of the anastomosis and to check for any significant stricturing. The contrast enema showed no leak and only a mild stricture. I reviewed the films myself and felt the result was quite satisfactory to proceed with closure of the loop ileostomy. Patient was seen in the office this morning to discuss further the upcoming surgery. In the office, she made known that she had a very difficult time with the contrast enema. She had bloating and discomfort associated with it. There was no rectal pain or pain with bowel movement but her ileostomy filled almost immediately after injection of the contrast. She then subsequently had multiple episodes of the ileostomy bag filling and having to be emptied. This occurred much more frequently than it typically does. She started having some chest discomfort and felt very weak and tired. She did not have an appetite. She would occasionally have emesis. She reported that she was feeling better and in fact was planning to go to work after her office visit. She had a CBC BMP and an EKG here before going to work. The CBC and EKG were normal. However the BMP showed an elevated BUN of 64 and her creatinine had doubled from the last result and was now 1.4. I called the patient and discussed the results with her. I offered to admit her for fluid resuscitation and monitoring but she was already at work and wished to try to manage this with pushing oral fluids and stay an outpatient. We had planned for her to push fluids and then get another BMP tomorrow. However, she had some vomiting at work and then subsequently called the office. She agreed that it would be better to go ahead and come into the hospital. She is now admitted for fluid resuscitation and monitoring for dehydration and acute kidney injury. Review of Systems Review of Systems: All systems reviewed & are unremarkable except as noted in HPI and below (HPI and those items noted below) Constitutional: Constitutional: Denies chills and Denies fever(s) Cardiovascular: Cardiovascular: Denies chest pain, Denies diaphoresis, Denies dyspnea and Denies paroxysmal nocturnal dyspnea Respiratory: Respiratory: Denies chest congestion, Denies cough and Denies dyspnea Integumentary/Breasts: Skin/Breast: Denies lesions and Denies rash PMFSH Past Medical History Medical History Anxiety Overweight Surgical History Surgical History H/O breast surgery (~2002) augmentation History of colon surgery 03/01/22 attempted laparoscopic sigmoidectomy, biopsy left pelvic peritoneum, open colorectal resection with hand sewn low pelvic colorectal anastomosis, creation diverting loop ileostomy. History of endometrial ablation (~11/17/19) History of tubal ligation (~11/17/19) Family History Family History Mother Hypertension Father Patient's father is in good health, Onset Age: 66 Social History Social History Smoking status: Never smoker Second hand tobacco smoke exposure: No Alcohol intake: current Drinks per week: 3 A
[2022-04-24] MEDS: SODIUM CHLORIDE 0.9% IV 1,000 ML 150 ML IV CONT (17:24)
[2022-04-24] MEDS: ONDANSETRON INJ 4 MG/2 ML VIAL IV PUSH (17:24)
--- NOTE | 2022-04-24 17:37 | ADMGEN ---
This patient, Christin Momin, was admitted to Medical Room 253-01. Patient/family oriented to hospital policies and general routines including ID bracelet, bed and alarms, visiting hours, pain management, procedures, bathroom and other care routines, personal items, smoking policy, room service/diet, and visiting hours. Information on how to activate the Rapid Response Team has been discussed. Patient/Family are encouraged to report perceived risks to care and to ask questions if they do not understand what they are told or what they should do.
[2022-04-24 18:04] VITALS: BP 115/72; PULSE 93; RESP 18; TEMP 36.6; O2SAT 100; BMI 23.0
[2022-04-24] MEDS: oxyCODONE/ACETAMINOPHEN (*CRX) 5-325 MG TABLET 1 TABLET PO (18:38)
[2022-04-24] MEDS: ENOXAPARIN 30 MG/0.3 ML SYRINGE SUB-Q (20:36)
[2022-04-24] MEDS: PROMETHAZINE HCL 25 MG/ML AMPUL 12.5 MG IV PUSH (20:36)
[2022-04-24 21:27] VITALS: BP 118/76; PULSE 87; RESP 17; TEMP 36.4; O2SAT 100
[2022-04-25] MEDS: SODIUM CHLORIDE 0.9% IV 1,000 ML 150 ML IV CONT ×3 (00:35→13:30)
[2022-04-25 05:18] VITALS: BP 99/52; PULSE 67; RESP 17; TEMP 36.6; O2SAT 99
[2022-04-25 05:30] LABS: Hematocrit 34.2 % (37.0-47.0); Hemoglobin 11.3 g/dL (12.0-15.0); Mean Corpuscular Hemoglobin 29.4 pg (26-34); Mean Corpuscular Volume 89.1 fl (80-100); Mean Platelet Volume 10.1 fl (7.4-10.4); Platelet Count Result 336 k/mm3 (150-375); Red Blood Count 3.84 M/mm3 (4.2-5.4); Red Cell Distribution Width 13.8 % (11.5-14.5)
[2022-04-25 05:53] LABS: Anion Gap 6 mmol/L (8-16); Blood Urea Nitrogen 41 mg/dL (7-17); Calcium 7.6 mg/dL (8.4-10.2); Carbon Dioxide 19 mmol/L (22-30); Chloride 106 mmol/L (98-107); Estimated CRCL calculation 51 ml/min; Estimated Glomerular Filt Rate > 60; Glucose 90 mg/dL (65-110); Potassium 3.5 mmol/L (3.4-5.0); Sodium 131 mmol/L (137-145)
[2022-04-25] MEDS: ENOXAPARIN 30 MG/0.3 ML SYRINGE SUB-Q (08:40)
[2022-04-25 13:45] VITALS: BP 98/52; PULSE 82; RESP 14; TEMP 36.5; O2SAT 100
--- NOTE | 2022-04-25 14:26 | PM.DS ---
DS: Admitting Diagnosis Discharge Date 04/25/22 Admitting Diagnosis Acute kidney injury Acute dehydration Ileostomy status DS: Discharge Diagnosis Discharge Diagnosis (1) Acute kidney injury: Code(s): N17.9 - Acute kidney failure, unspecified Status: Acute (2) Acute dehydration: Code(s): E86.0 - Dehydration Status: Acute (3) Ileostomy status: Code(s): Z93.2 - Ileostomy status Status: Acute DS: Summary Hospital Course Reason for hospitalization: The patient is a 46-year-old woman who on March 01 of this year was taken to surgery after home bowel preparation for hand access laparoscopic sigmoidectomy.? The surgery was much more difficult than expected due to severe pelvic inflammation and fibrosis.? Several attempts at colorectal anastomosis were made and eventually a hand-sewn colorectal anastomosis was performed.? A protective loop ileostomy was also performed.? Patient has recovered from the surgery and was doing well.? In anticipation of closure of the loop ileostomy, the patient underwent a water-soluble contrast enema on 04/20/2022 to check the patency of the anastomosis and to check for any significant stricturing.? The contrast enema showed no leak and only a mild stricture. Patient was seen in the office yesterday morning to discuss the upcoming surgery. In the office she had multiple complaints after having the contrast enema. She was sent for lab work and an EKG, which showed an elevated BUN of 64 and creatinine doubled from the last results now at 1.4. She was then directly admitted to the medical floor for fluid resuscitation and monitoring for dehydration and acute kidney injury. Hospital Course: The patient was started on IV fluids with normal saline at a rate of 150 mL/hr. She was able to eat a regular diet and is tolerating this well into this morning. She began to notice an increase in her urine output overnight. She did have some menstrual cramping in her lower abdomen and was given Percocet last night, which then made her nauseated. She was then given Phenergan IV push once. This helped with her nausea, but the medications made her drowsy. She reports going to sleep and sleeping well throughout the night. Her cramping resolved before the morning. She woke up and tolerated breakfast well. She reports overall feeling much better this morning. Labs were repeated today and showed her BUN was down to 41 and creatinine at 0.9. She was continued on IV fluids today and was monitored. I discussed the patient's case and plan with Dr. Rico, and she appears stable for discharge this afternoon. Will repeat BUN/creatinine again in 2 days as an outpatient. Will still plan on proceeding with surgery next week as long as she continues to improve. Status at Discharge Functional status at discharge: independent ambulation Overall status at discharge: patient is progressing back to baseline Time Spent with Patient Time attestation: Total time spent providing and/or coordinating discharge services: Time spent: Less than 30 minutes Exam Const: General: no acute distress and awake Orientation/consciousness: patient oriented x3 GI: Inspection: non-distended and other (ileostomy functioning well ) GI Palp: Yes Soft to palpation, No Tenderness to palpation present (GI), No Guarding due to palpation present (GI) and No Hernia present Auscultation: normal bowel sounds Skin: General skin exam: normal color Neuro: General: moves all extremities and no focal motor deficits Extrem: General: no calf tenderness and no edema Psych: Insight: Good insight present (Psych) Judgement: Good judgement present (Psych) DS: Data Data Completed and Pending Labs on day of discharge: Labs from last 24 hours 04/25/22 04/25/22 05:06 05:06 WBC 5.0 RBC 3.84 L Hgb 11.3 L D Hct 34.2 L MCV 89.1 MCH 29.4 MCHC 33.0 RDW 13.8 Plt Count 336 MPV 10.1 Sodium 131 L Potassium 3.5 Chloride 106
== END 2022-04-25 18:17 | disposition home or self-care (01) ==
PROVIDERS: Admitting Provider Surgery; PCP Physician Assistant; Visit Provider Surgery
DX: N17.9 Acute kidney failure, unspecified (principal); E86.0 Dehydration; Z93.2 Ileostomy status; F10.90 Alcohol use, unspecified, uncomplicated; F41.9 Anxiety disorder, unspecified; E66.3 Overweight; Z68.23 Body mass index [BMI] 23.0-23.9, adult; Z79.899 Other long term (current) drug therapy
CPT/HCPCS: 36415; 80048; 85027; 96360; 96361; 96372; 96374; 96375; A9270; G0378; G0379; J1650; J2405; J2550; J7030

== ENCOUNTER 2022-04-28 07:59 | Outpatient (CLI) | payer BC, SELFPAY ==
[2022-04-28 08:26] LABS: Basophils Percent Auto 0.4 % (0.2-1.2); Eosinophils Absolute Auto 0.1 K/mm3 (0-0.3); Eosinophils Percent Auto 1.8 % (0-4.4); Hematocrit 37.1 % (37.0-47.0); Hemoglobin 12.2 g/dL (12.0-15.0); Immature Granulocyte Absolute 0.01 K/mm3 (0.00-0.031); Immature Granulocyte Percent A 0.2 % (0-0.5); Lymphocytes Absolute Auto 1.59 K/mm3 (0.9-3.2); Mean Corpuscular HGB Conc 32.9 g/dl (32-36); Mean Corpuscular Hemoglobin 29.6 pg (26-34); Mean Platelet Volume 9.8 fl (7.4-10.4); Monocytes Absolute Auto 0.3 K/mm3 (0.1-0.6); Monocytes Percent Auto 5.3 % (2.6-8.5); Neutrophils Absolute Auto 3.5 K/mm3 (1.3-6.7); Neutrophils Percent Auto 63.3 % (45.5-73.1); Platelet Count Result 309 k/mm3 (150-375); Red Blood Count 4.12 M/mm3 (4.2-5.4); Red Cell Distribution Width 14.3 % (11.5-14.5); White Blood Count 5.5 K/mm3 (4.5-10.0)
[2022-04-28 08:37] LABS: Anion Gap 5 mmol/L (8-16); Blood Urea Nitrogen 11 mg/dL (7-17); Calcium 8.5 mg/dL (8.4-10.2); Carbon Dioxide 27 mmol/L (22-30); Chloride 105 mmol/L (98-107); Estimated Glomerular Filt Rate > 60; Glucose 86 mg/dL (65-110); Potassium 3.7 mmol/L (3.4-5.0); Sodium 137 mmol/L (137-145)
== END 2022-04-28 08:00 | disposition home or self-care (01) ==
LOC: ANHSURGERY 08:04
PROVIDERS: PCP Physician Assistant; Visit Provider Surgery
DX: K57.20 Diverticulitis of large intestine with perforation and abscess without bleeding (principal); K94.13 Enterostomy malfunction; E86.0 Dehydration
CPT/HCPCS: 36415; 80048; 85025; 86850; 86900; 86901

== ENCOUNTER 2022-05-03 17:42 | Inpatient (IN) | payer BC, SELFPAY ==
[2022-04-27 10:45] VITALS: BMI 23.6
--- NOTE | 2022-04-27 10:55 | PC.NURSE ---
Report to the Outpatient Waiting Room, entrance under the green pavilion located off [facility], at time 10:00 on date 05/03/22. Planned Procedure Time: 12:00. Time changes happen often and if your time is changed the preop area will call you the afternoon before. - You and your visitor will be asked to self-screen and do not enter if you have any COVID symptoms. - Only one visitor is requested with a max of two and NO children visitors are allowed at this time. - The patient visitor may be requested to leave or wait in car when not with patient due to distancing restrictions. - A mask is optional within the hospital at this time. Patients may have clear liquids (water, carbonated beverages, clear teas, apple juice) until 3 hours prior to surgery (9:00) with a maximum of 20 ounces. - No food from midnight until time of surgery Take the following medications with a SIP of water the morning of surgery: NONE DO NOT STOP ANY OF YOUR OTHER PRESCRIPTION MEDICATIONS PRIOR TO SURGERY?EXCEPT THE FOLLOWING Medications to discontinue per physician: N/A Date to take last dose: N/A Please no make-up, nail spanish, hairspray, perfume, deodorant, or body powder the day of surgery. No jewelry (including any body piercings) or valuables the day of surgery, leave them at home. Please take a shower or bath the night before, or the morning of, surgery with an antibacterial soap. Wear comfortable, loose fitting clothing. - Jewelry must be removed prior to entering the operating room. Rings and piercings that are not removed may be cut off. - The hospital will not accept responsibility for valuables. - Please leave all valuables, including medications, at home the day of surgery. If you are going home after surgery, a licensed sweeper driver must drive you home. - NO public transportation without another adult if you receive anesthesia. - We recommend that an adult stay with you for 24 hours following discharge. - We also recommend that you do not drive, make important decision, drink alcoholic beverages, or take any drugs that were not prescribed by your health care provider for at least 24 hours after your discharge time. Follow any additional instructions given to you from your surgeon. If you or anyone in your household have experienced Covid symptoms in the past week, please notify your surgeon or the nurse liaison at the phone number below for possible testing. Telephone instructions given to PT - ISMA COBB and asked if any additional questions and then verbalized understanding. Patient advised to call surgeon office or pre surgery nurse liaison [phone] if any additional questions.
[2022-05-03] VITALS (18 sets, daily range): BP systolic 90–125; BP diastolic 56–78; PULSE 56–91; RESP 10–20; TEMP 36.2–36.4; O2SAT 93–100; BMI 24.9
--- NOTE | 2022-05-03 10:06 | WPDHPUPDATE1 ---
History and Physical Update Update Date/Time: 05/03/22 10:06 History and Physical has been reviewed, including an updated exam of the patient. There are NO changes in the patient's condition. Risks, benefits, and alternatives have been discussed and questions answered. Patient agrees to proceed with procedure.
[2022-05-03] MEDS: LACTATED RINGERS 1,000 ML 30 ML IV CONT ×3 (11:30→16:44)
[2022-05-03] MEDS: KETOROLAC 15 MG/ML VIAL (*BKC) IV PUSH (11:30)
[2022-05-03] MEDS: ACETAMINOPHEN 500 MG TABLET 1000 MG PO (11:30)
--- NOTE | 2022-05-03 11:53 | P.PNAN_ITS ---
Anes - Initial Pre Proc Eval Procedure: Operation Date: 05/03/22 12:00 Proposed Procedures p Closure Loop Ileostomy - Hugo Rico MD Date/Time: 05/03/22 11:53 Surgeon: Hugo Rico MD Pre Op Diagnosis: Ileostomy Dysfunction Diverticulitis Patient Data Age: 46 Gender: F Height: 1.55 m Weight: 56.7 kg Allergies Allergy/AdvReac Type Severity Reaction Status Date / Time melatonin Allergy Unknown swellling Verified 04/27/22 10:45 codeine AdvReac Intermediate dizziness Verified 04/27/22 10:45 Home Medications Medication Instructions Recorded Confirmed Type methocarbamol 750 mg tablet 1 tablet PO QHS 08/05/21 04/27/22 History Patient hx anesthesia problems: post op nausea/vomiting Family hx anesthesia problems: none Results Review: All pre-operative results and documents have been reviewed as part of the pre- operative evaluation. [facility] Past Medical History Medical History Anxiety Overweight Surgical History Surgical History H/O breast surgery (~2002) augmentation History of colon surgery 03/01/22 attempted laparoscopic sigmoidectomy, biopsy left pelvic peritoneum, open colorectal resection with hand sewn low pelvic colorectal anastomosis, creation diverting loop ileostomy. History of endometrial ablation (~11/17/19) History of tubal ligation (~11/17/19) Family History Family History Mother Hypertension Father Patient's father is in good health, Onset Age: 66 Social History Social History Smoking status: Never smoker Second hand tobacco smoke exposure: No Alcohol intake: current Drinks per week: 3 Alcohol use details: NONE IN 2022 Substance use: never Substance use type: does not use Lack of Transportation: No Lack of Food: Never True Current Housing: I Have Housing Concerned About Future Housing: No Difficulty Paying Gas/Electric Bills: No Difficulty Paying for Meds: No Currently Unemployed: No Education: Bachelor's Degree Difficulty w/ Childcare or Family Care: No Living arrangements: with friend(s) Additional living arrangements comments: BOYFRIEND Sexual Orientation (if Verbalized by the Patient): Straight or Heterosexual Spiritual care concerns: No Anes - Eval Final PreProcedure Day of Procedure 05/03/22 11:53 Patient weight: normal Heart: regular rate and rhythm Lungs: clear to auscultation Airway: Mallampati scale class II Neurological: alert and oriented Last oral intake: >/= 8 hours ASA classification: II Emergent: no Anesthetic plan: proceed Anesthesia type and monitoring: general ETT and standard monitoring Results Review: All pre-operative results and documents have been reviewed as part of the pre- operative evaluation. Informed Consent: The patient's anesthetic plan and its attendant risks and benefits were discussed with the patient/family/POA. Questions were solicited and answers provided to the satisfaction of the patient/family/POA.
[2022-05-03] MEDS: ceFAZolin 2 GM/D5W 50 ML 2 GM/50 ML BAG IVPB (11:59)
[2022-05-03] MEDS: metroNIDAZOLE 500 MG/ISO 100ML 500 MG/100 ML BAG 100 MG IVPB (12:08)
[2022-05-03] MEDS: SCOPOLAMINE 1.5 MG PATCH TRANSDERM (12:16)
[2022-05-03] MEDS: fentaNYL CITRATE INJ (*CRX) 100 MCG/2 ML VIAL 25 MCG IV PUSH ×8 (14:00→14:14)
[2022-05-03] MEDS: HYDROmorphone HCL INJ (*CRX) 1 MG/ML SYR IV PUSH ×4 (14:20→16:09)
--- NOTE | 2022-05-03 14:22 | W.PM.PROC2 ---
Procedure Note - Detailed Date of Procedure 05/03/22 Pre-op Diagnosis Ileostomy status, history sigmoid resection Post-op Diagnosis Same Procedure Performed Closure loop ileostomy Surgeon Hugo Rico MD Heating Unit [employer] Tamela Arreola [facility] Anesthesia General Indications Patient is a 46-year-old woman who underwent a difficult sigmoid colon resection for diverticulitis a couple of months ago. A diverting loop ileostomy was created to protect the colorectal anastomosis. Recent water-soluble contrast enema showed the anastomosis to be patent with no evidence of a leak or significant stricture. She is taken back to surgery now for closure of her loop ileostomy. Findings None significant. Description of Procedure Patient was taken to surgery and induced into general anesthesia. The ileostomy appliance was removed and the abdomen was prepped and draped. An incision was made around the mucocutaneous junction of the loop ileostomy. We then dissected the bowel loops free from the underlying skin and subcutaneous. Dissection was continued circumferentially around the loop ileostomy freeing adhesions from the fascia and additional adhesions from the subcutaneous. Eventually all the adhesions were taken down and I was able to place a finger in the abdomen and completely circumscribe the ileostomy from the peritoneal aspect. We pulled up the bowel involved with the loop ileostomy. There were a couple of serosal injuries proximal to the efferent limb. I freed a few adhesions in the area and decided to excise the loop ileostomy and perform a stapled [id number] but functional end-to-end anastomosis. A TLC 55 stapler was used. I made a mesenteric defect just distal to the the functional end of the loop ileostomy. I divided the bowel there with the stapler. Then divided the rest of the mesentery with the cautery. There was very little bleeding. I then divided just proximal to the serosal injuries on the proximal end of the ileostomy. The loop ileostomy was then passed off as a specimen. The bowel was sutured with interrupted 4-0 silk sutures to bring the 2 sides of the ileum in proximity to 1 another. The TLC 55 was then used to form a [id number] but functional end-to-end anastomosis. This went well. The enteroenterostomy was closed in 2 layers. The inner layer was bidirectional running inverting [place] sutures of 4-0 chromic. The outer layer was seromuscular Lembert sutures of 4-0 silk. I had to slightly enlarge the skin and the fascia of the loop ileostomy to allow the bowel to be placed back in the abdomen. I controlled bleeding from opening the fascia with the cautery. I then closed the peritoneum with bidirectional running 3-0 Vicryl suture. The anterior fascia was closed with bidirectional running 0 PDS suture. The subcu was closed with interrupted 3-0 Vicryl suture. The skin was loosely approximated with subcuticular 4-0 Vicryl skin stitches. Wound was dressed with Xeroform gauze fluffs and tape. Patient was awakened and taken to recovery in good condition. Estimated blood loss was 30 cc. Sponge and needle counts were correct x2. Estimated Blood Loss -30 Drains No Packing No Pathology Yes (Loop ileostomy) Complications No immediate complications Condition Stable Disposition PACU [facility] Billing Surgery - Charge Forward: Surgery Billing (Closure loop ileostomy)
--- NOTE | 2022-05-03 15:18 | SUR.PHASEI ---
at 1515 pt met discharge criteria and is waiting for a room.
--- NOTE | 2022-05-03 16:46 | SUR.PHASEI ---
report was given to floor nurse. now waiting on the room to be clean. vss. pt bp is soft pt said her baseline SBP is 110 SBP now is in the 90s
--- NOTE | 2022-05-03 17:03 | SUR.PHASEI ---
this nurse called the floor nurse and she said the housekeepers have just started cleaning the pts room and they will call me when it is clean.
--- NOTE | 2022-05-03 17:16 | SUR.PHASEI ---
this nurse was unable to get ahold of pt visitor. but pt said she was able to text him and get a response.
--- NOTE | 2022-05-03 18:10 | ADMGEN ---
This patient, Christin Momin, was admitted to Medical Room 349-01. Patient/family oriented to hospital policies and general routines including ID bracelet, bed and alarms, visiting hours, pain management, procedures, bathroom and other care routines, personal items, smoking policy, room service/diet, and visiting hours. Information on how to activate the Rapid Response Team has been discussed. Patient/Family are encouraged to report perceived risks to care and to ask questions if they do not understand what they are told or what they should do.
[2022-05-03] MEDS: LACTATED RINGERS 1,000 ML 80 ML IV CONT (18:19)
[2022-05-03] MEDS: oxyCODONE/ACETAMINOPHEN (*CRX) 5-325 MG TABLET 1 TABLET PO ×2 (18:20→22:19)
[2022-05-03] MEDS: FAMOTIDINE 20 MG/2 ML VIAL IV PUSH (20:00)
[2022-05-03] MEDS: methocarbamoL 750 MG TABLET PO (20:00)
[2022-05-04 00:40] VITALS: BP 104/64; PULSE 69; RESP 21; TEMP 36.1; O2SAT 100
[2022-05-04] MEDS: IBUPROFEN IV 800 MG/200 ML 800 MG/200 ML BAG 400 MG IVPB ×2 (01:09→12:00)
[2022-05-04] MEDS: oxyCODONE/ACETAMINOPHEN (*CRX) 5-325 MG TABLET 1 TABLET PO ×3 (04:43→20:18)
[2022-05-04 06:10] LABS: Hematocrit 27.6 % (37.0-47.0); Hemoglobin 9.2 g/dL (12.0-15.0); Mean Corpuscular HGB Conc 33.3 g/dl (32-36); Mean Corpuscular Hemoglobin 29.2 pg (26-34); Mean Corpuscular Volume 87.6 fl (80-100); Mean Platelet Volume 10.1 fl (7.4-10.4); Platelet Count Result 214 k/mm3 (150-375); Red Blood Count 3.15 M/mm3 (4.2-5.4); Red Cell Distribution Width 14.6 % (11.5-14.5); White Blood Count 8.7 K/mm3 (4.5-10.0)
[2022-05-04 06:25] LABS: Anion Gap 2 mmol/L (8-16); Blood Urea Nitrogen 13 mg/dL (7-17); Carbon Dioxide 29 mmol/L (22-30); Chloride 101 mmol/L (98-107); Estimated CRCL calculation 65 ml/min; Estimated Glomerular Filt Rate > 60; Glucose 88 mg/dL (65-110); Potassium 3.9 mmol/L (3.4-5.0); Sodium 132 mmol/L (137-145)
[2022-05-04 06:56] VITALS: BP 108/60; PULSE 61; RESP 21; TEMP 35.7; O2SAT 100
[2022-05-04] MEDS: LACTATED RINGERS 1,000 ML 80 ML IV CONT (07:41)
--- NOTE | 2022-05-04 08:27 | PM.PNGS ---
Progress Note: A&P Assessment and Plan (1) History of closure of ileostomy: Code(s): Z98.890 - Other specified postprocedural states Status: Acute Assessment and Plan: Doing well postop day 1. Having trouble sleeping so will start p.r.n. trazodone. Up walking more today. Recheck labs and exam tomorrow. (2) History of colon surgery: Code(s): Z98.890 - Other specified postprocedural states Status: Chronic Subjective Subjective Date/Time Seen: 05/04/22 08:27 Post Op day: 1 Patient reports: pain is less, tolerating liquids well, no flatus, no bowel movement, afebrile and other (Trouble sleeping) Exam Const: General: comfortable and no acute distress; No confusion Orientation/consciousness: patient oriented x3 and No confusion GI: Inspection: non-distended, incision (Dressing dry and intact) and scaphoid GI Palp: Yes Soft to palpation, Yes Tenderness to palpation present (GI), No Guarding due to palpation present (GI) and No Rebound tenderness present Auscultation: normal bowel sounds Neuro: General: patient oriented x3, no focal motor deficits and No confusion Extrem: General: no calf tenderness and no edema Psych: Affect: normal affect Insight: Good insight present (Psych) Judgement: Good judgement present (Psych) Objective Data Vital Signs Vital Signs: Vital Signs - 24 hr 05/03/22 12:10 05/03/22 13:47 05/03/22 14:00 Temperature 36.4 C L 36.2 C L Pulse Rate 91 89 69 Respiratory Rate 14 15 17 Blood Pressure 125/77 118/78 99/61 L Pulse Oximetry 100 100 100 Oxygen Delivery Room Air Simple Face Mask Room Air Oxygen Flow Rate 10 05/03/22 14:15 05/03/22 14:30 05/03/22 14:45 Temperature Pulse Rate 62 61 56 L Respiratory Rate 18 18 13 Blood Pressure 101/61 106/60 122/68 Pulse Oximetry 100 100 100 Oxygen Delivery Room Air Room Air Room Air Oxygen Flow Rate 05/03/22 15:00 05/03/22 15:15 05/03/22 15:45 Temperature Pulse Rate 58 L 75 65 Respiratory Rate 10 L 17 10 L Blood Pressure 107/58 L 116/64 99/62 L Pulse Oximetry 100 97 100 Oxygen Delivery Room Air Room Air Room Air Oxygen Flow Rate 05/03/22 16:15 05/03/22 16:45 05/03/22 17:15 Temperature Pulse Rate 62 67 87 Respiratory Rate 10 L 12 14 Blood Pressure 90/56 L 92/63 L 102/66 Pulse Oximetry 100 100 93 Oxygen Delivery Room Air Room Air Room Air Oxygen Flow Rate 05/03/22 17:37 05/03/22 18:00 05/03/22 18:15 Temperature 36.4 C 36.3 C L Pulse Rate 82 81 84 Respiratory Rate 14 14 16 Blood Pressure 92/64 L 102/65 103/60 Pulse Oximetry 95 100 100 Oxygen Delivery Room Air Oxygen Flow Rate 05/03/22 18:35 05/03/22 18:51 05/03/22 20:00 Temperature 36.3 C L Pulse Rate 83 83 Respiratory Rate 16 16 Blood Pressure 105/62 Pulse Oximetry 100 100 Oxygen Delivery Room Air Room Air Oxygen Flow Rate 05/03/22 22:35 05/04/22 06:56 05/04/22 00:40 Temperature 36.3 C L 35.7 C L 36.1 C L Pulse Rate 65 61 69 Respiratory Rate 20 21 H 21 H Blood Pressure 96/58 L 108/60 104/64 Pulse Oximetry 98 100 100 Oxygen Delivery Oxygen Flow Rate 05/04/22 07:45 Temperature Pulse Rate Respiratory Rate Blood Pressure Pulse Oximetry Oxygen Delivery Room Air Oxygen Flow Rate Intake/Output Intake/Output: Intake & Output 05/01/22 05/02/22 05/03/22 05/04/22 23:59 23:59 23:59 23:59 Intake Total 1150 1740 Output Total 600 Balance 1150 1140 Meds/Results Medications: Active Medications Generic Name Dose Route Start Last Admin Trade Name Freq PRN Reason Stop Dose Admin Acetaminophen 500 mg 05/03/22 17:42 Acetaminophen 500 Mg Tablet PO Q6H PRN Mild Pain (1-3) or Fever Enoxaparin Sodium 40 mg 05/04/22 09:00 Enoxaparin 40 Mg/0.4 Ml Syringe SUB-Q DAILY MAYA Hydromorphone HCl 1 mg 05/03/22 17:42 Hydromorphone Hcl Inj (*Crx) 1 Mg/Ml Syr IV PUSH Q2H PRN Pain Rated 7-10 Hydromorphone HCl 0.5 mg 05/03/22 17:42
[2022-05-04] MEDS: ENOXAPARIN 40 MG/0.4 ML SYRINGE SUB-Q (09:08)
--- NOTE | 2022-05-04 11:17 | WPDANESPN ---
Anes - Prog Note Post-Op Date/Time: 05/04/22 11:17 Cardiovascular status: normal Respiratory status: normal Airway patency: baseline Mental status: baseline Post-Op hydration status: normal Vital Signs: Last Vital Signs Temp 96.2 F L 05/04/22 06:56 Pulse 61 05/04/22 06:56 Resp 21 H 05/04/22 06:56 BP 108/60 05/04/22 06:56 Pulse Ox 100 05/04/22 06:56 O2 Del Method Room Air 05/04/22 07:45 O2 Flow Rate 10 05/03/22 13:47 Pain Score (VAS): 3 I/O: Intake & Output 05/03/22 05/04/22 05/04/22 23:59 07:59 15:59 Intake Total 1000 1740 360 Output Total 600 Balance 1000 1140 360 Laboratory Tests 05/04/22 05:45 05/04/22 05:45 05/04/22 05/04/22 05:45 05:45 WBC 8.7 RBC 3.15 L Hgb 9.2 L D Hct 27.6 L MCV 87.6 MCH 29.2 MCHC 33.3 RDW 14.6 H Plt Count 214 MPV 10.1 Sodium 132 L Potassium 3.9 Chloride 101 Carbon Dioxide 29 Anion Gap 2 L BUN 13 Creatinine 0.70 Estim Creat Clear Calc 65 Estimated GFR > 60 Glucose 88 Calcium 8.0 L Post-procedural complaints: none Patient Feedback: Patient satisfied with anesthetic care.
[2022-05-04 14:00] VITALS: BP 107/72; PULSE 76; RESP 18; TEMP 36.7; O2SAT 100
[2022-05-04 20:00] VITALS: PULSE 76; RESP 18; O2SAT 100
[2022-05-04] MEDS: methocarbamoL 750 MG TABLET PO (20:18)
[2022-05-04 22:42] VITALS: BP 123/77; PULSE 83; RESP 21; TEMP 36.5; O2SAT 100
[2022-05-05] MEDS: ONDANSETRON INJ 4 MG/2 ML VIAL IV PUSH ×4 (00:05→21:40)
[2022-05-05] MEDS: oxyCODONE/ACETAMINOPHEN (*CRX) 5-325 MG TABLET 1 TABLET PO ×2 (00:05→05:43)
[2022-05-05 05:46] LABS: Hemoglobin 10.1 g/dL (12.0-15.0); Mean Corpuscular HGB Conc 32.6 g/dl (32-36); Mean Corpuscular Hemoglobin 29.7 pg (26-34); Mean Corpuscular Volume 91.2 fl (80-100); Mean Platelet Volume 10.2 fl (7.4-10.4); Platelet Count Result 215 k/mm3 (150-375); Red Cell Distribution Width 14.9 % (11.5-14.5); White Blood Count 9.5 K/mm3 (4.5-10.0)
[2022-05-05 06:00] VITALS: BP 111/63; PULSE 89; RESP 18; TEMP 36.7; O2SAT 96
[2022-05-05 06:09] LABS: Anion Gap 4 mmol/L (8-16); Blood Urea Nitrogen 9 mg/dL (7-17); Carbon Dioxide 28 mmol/L (22-30); Chloride 101 mmol/L (98-107); Estimated CRCL calculation 65 ml/min; Estimated Glomerular Filt Rate > 60; Glucose 100 mg/dL (65-110); Potassium 3.3 mmol/L (3.4-5.0); Sodium 133 mmol/L (137-145)
[2022-05-05] MEDS: ENOXAPARIN 40 MG/0.4 ML SYRINGE SUB-Q (08:33)
[2022-05-05] MEDS: HYDROmorphone HCL INJ (*CRX) 1 MG/ML SYR IV PUSH (12:39)
[2022-05-05 14:00] VITALS: BP 113/65; PULSE 88; RESP 20; TEMP 36.6; O2SAT 95
[2022-05-05] MEDS: SIMETHICONE 80 MG TAB.CHEW PO ×2 (14:03→19:55)
[2022-05-05] MEDS: IBUPROFEN IV 800 MG/200 ML 800 MG/200 ML BAG 400 MG IVPB ×2 (14:04→21:05)
--- NOTE | 2022-05-05 16:52 | PM.PNGS ---
Progress Note: A&P Assessment and Plan (1) History of closure of ileostomy: Code(s): Z98.890 - Other specified postprocedural states Status: Acute Assessment and Plan: Having bowel movements and tolerating liquids although does complain of some nausea and increased abdominal pain today. Will continue full liquids and recheck exam and labs again tomorrow. Do not see any signs of complication at this point. (2) History of colon surgery: Code(s): Z98.890 - Other specified postprocedural states Status: Chronic Assessment and Plan: Sigmoidectomy for diverticulitis. Subjective Subjective Date/Time Seen: 05/05/22 16:52 Post Op day: 2 Patient reports: still having pain, bowel movement, nausea and afebrile Interval history: Complains of nausea and abdominal pain mostly at the area of the ileostomy closure site. She has not had any vomiting and has had 3 bowel movements. Exam Const: General: comfortable and no acute distress; No confusion Orientation/consciousness: patient oriented x3 and No confusion GI: Inspection: non-distended, incision (Slightly reddened but appears to be healing adequately) and scaphoid GI Palp: Yes Soft to palpation, Yes Tenderness to palpation present (GI), No Guarding due to palpation present (GI) and No Rebound tenderness present Auscultation: normal bowel sounds Neuro: General: patient oriented x3, no focal motor deficits and No confusion Extrem: General: no calf tenderness and no edema Psych: Affect: normal affect Insight: Good insight present (Psych) Judgement: Good judgement present (Psych) Objective Data Vital Signs Vital Signs: Vital Signs - 24 hr 05/04/22 20:00 05/04/22 22:42 05/05/22 06:00 Temperature 36.5 C 36.7 C Pulse Rate 76 83 89 Respiratory Rate 18 21 H 18 Blood Pressure 123/77 111/63 Pulse Oximetry 100 100 96 Oxygen Delivery Room Air 05/05/22 08:00 05/05/22 14:00 Temperature 36.6 C Pulse Rate 88 Respiratory Rate 20 Blood Pressure 113/65 Pulse Oximetry 95 Oxygen Delivery Room Air Intake/Output Intake/Output: Intake & Output 05/02/22 05/03/22 05/04/22 05/05/22 23:59 23:59 23:59 23:59 Intake Total 1150 3140 500 Output Total 600 Balance 1150 2540 500 Meds/Results Medications: Active Medications Generic Name Dose Route Start Last Admin Trade Name Freq PRN Reason Stop Dose Admin Acetaminophen 500 mg 05/03/22 17:42 Acetaminophen 500 Mg Tablet PO Q6H PRN Mild Pain (1-3) or Fever Enoxaparin Sodium 40 mg 05/04/22 09:00 05/05/22 08:33 Enoxaparin 40 Mg/0.4 Ml Syringe SUB-Q 40 mg DAILY MAYA Administration Famotidine 20 mg 05/05/22 21:00 Famotidine 20 Mg Tablet PO Q12HR [facility] Hydromorphone HCl 1 mg 05/03/22 17:42 05/05/22 12:39 Hydromorphone Hcl Inj (*Crx) 1 Mg/Ml Syr IV PUSH 1 mg Q2H PRN Administration Pain Rated 7-10 Hydromorphone HCl 0.5 mg 05/03/22 17:42 Hydromorphone Hcl Inj (*Crx) 1 Mg/Ml Syr IV PUSH Q2H PRN Pain Rated 4-6 Ibuprofen 800 mg in 200 mls @ 400 mls/hr 05/03/22 17:42 05/05/22 14:04 Caldolor 800 Mg/200 Ml IVPB 400 mls/hr Q6H PRN Administration Pain Rated 1-3 Methocarbamol 750 mg 05/03/22 21:00 05/04/22 20:18 Methocarbamol 750 Mg Tablet PO 750 mg QHS MAYA Administration Naloxone HCl 0.1 mg 05/03/22 17:42 Naloxone Hcl 0.4 Mg/Ml Vial IV PUSH Q2M PRN Opiate Reversal Ondansetron HCl 4 mg 05/03/22 17:42 05/05/22 12:36 Ondansetron Inj 4 Mg/2 Ml Vial IV PUSH 4 mg Q4H PRN Administration Nausea And Vomiting Oxycodone/Acetaminophen 1 tablet 05/03/22 17:42 05/05/22 05:43 Oxycodone/Acetaminophen (*Crx) 5-325 Mg Tablet PO 1 tablet Q4H PRN Administration Pain Rated 4-6 Simethicone 80 mg 05/05/22 17:00 05/05/22 14:03 Simethicone 80 Mg Tab.Chew PO 80 mg QID MAYA Administration Trazodone HCl 50 mg 05/04/22 08:24 Trazodone Hcl 50 Mg Tablet
[2022-05-05] MEDS: traZODone HCL 50 MG TABLET PO (19:56)
[2022-05-05] MEDS: FAMOTIDINE 20 MG TABLET PO (19:56)
[2022-05-05] MEDS: methocarbamoL 750 MG TABLET PO (19:56)
[2022-05-05 20:28] VITALS: BP 107/60; PULSE 101; RESP 18; TEMP 36.8; O2SAT 98
[2022-05-06] MEDS: IBUPROFEN IV 800 MG/200 ML 800 MG/200 ML BAG 400 MG IVPB (03:23)
[2022-05-06 05:35] VITALS: BP 108/68; PULSE 94; RESP 18; TEMP 36.9; O2SAT 95
[2022-05-06 06:12] LABS: Anion Gap 5 mmol/L (8-16); Blood Urea Nitrogen 8 mg/dL (7-17); Calcium 7.4 mg/dL (8.4-10.2); Carbon Dioxide 26 mmol/L (22-30); Chloride 103 mmol/L (98-107); Estimated CRCL calculation 74 ml/min; Estimated Glomerular Filt Rate > 60; Glucose 80 mg/dL (65-110); Potassium 2.9 mmol/L (3.4-5.0); Sodium 134 mmol/L (137-145)
[2022-05-06 06:23] LABS: Hematocrit 26.6 % (37.0-47.0); Hemoglobin 8.7 g/dL (12.0-15.0); Mean Corpuscular HGB Conc 32.7 g/dl (32-36); Mean Corpuscular Hemoglobin 29.8 pg (26-34); Mean Corpuscular Volume 91.1 fl (80-100); Mean Platelet Volume 10.4 fl (7.4-10.4); Platelet Count Result 189 k/mm3 (150-375); Red Blood Count 2.92 M/mm3 (4.2-5.4); Red Cell Distribution Width 14.6 % (11.5-14.5); White Blood Count 6.1 K/mm3 (4.5-10.0)
[2022-05-06] MEDS: SIMETHICONE 80 MG TAB.CHEW PO ×3 (08:26→20:39)
[2022-05-06] MEDS: ACETAMINOPHEN ELIXIR 325 MG/10.15 ML UDC 650 MG PO ×2 (08:26→20:41)
[2022-05-06] MEDS: ENOXAPARIN 40 MG/0.4 ML SYRINGE SUB-Q (08:26)
[2022-05-06] MEDS: FAMOTIDINE 20 MG TABLET PO ×2 (08:26→20:39)
[2022-05-06] MEDS: oxyCODONE/ACETAMINOPHEN (*CRX) 5-325 MG TABLET 1 TABLET PO (12:24)
[2022-05-06 14:00] VITALS: BP 108/63; PULSE 89; RESP 20; TEMP 35.7; O2SAT 98
--- NOTE | 2022-05-06 14:51 | PM.PNGS ---
Progress Note: A&P Assessment and Plan (1) History of closure of ileostomy: Code(s): Z98.890 - Other specified postprocedural states Status: Acute Assessment and Plan: Improved today. No more nausea. Still having bowel movements. Advance to solid food. Still taking IV ibuprofen. Will change to oral ibuprofen. Patient reports problems swallowing pills. She has been able to take oral ibuprofen in the past. Possibly home tomorrow if no need for IV analgesics. (2) Ileostomy status: Code(s): Z93.2 - Ileostomy status Status: Acute (3) History of colon surgery: Code(s): Z98.890 - Other specified postprocedural states Status: Chronic Subjective Subjective Date/Time Seen: 05/06/22 14:51 Post Op day: 3 Patient reports: feels better, pain is less, tolerating liquids well and afebrile Exam Const: General: comfortable and no acute distress; No confusion Orientation/consciousness: patient oriented x3 and No confusion GI: Inspection: non-distended, incision (Dry and healing) and scaphoid GI Palp: Yes Soft to palpation, Yes Tenderness to palpation present (GI), No Guarding due to palpation present (GI) and No Rebound tenderness present Auscultation: normal bowel sounds Neuro: General: patient oriented x3, no focal motor deficits and No confusion Extrem: General: no calf tenderness and no edema Psych: Affect: normal affect Insight: Good insight present (Psych) Judgement: Good judgement present (Psych) Objective Data Vital Signs Vital Signs: Vital Signs - 24 hr 05/05/22 20:28 05/06/22 05:35 05/06/22 08:00 Temperature 36.8 C 36.9 C Pulse Rate 101 H 94 Respiratory Rate 18 18 Blood Pressure 107/60 108/68 Pulse Oximetry 98 95 Oxygen Delivery Room Air Intake/Output Intake/Output: Intake & Output 05/03/22 05/04/22 05/05/22 05/06/22 23:59 23:59 23:59 23:59 Intake Total 1150 3140 900 620 Output Total 600 300 Balance 1150 2540 900 320 Meds/Results Medications: Active Medications Generic Name Dose Route Start Last Admin Trade Name Freq PRN Reason Stop Dose Admin Acetaminophen 650 mg 05/05/22 18:32 05/06/22 08:26 Acetaminophen Elixir 325 Mg/10.15 Ml Udc PO 650 mg Q6H PRN Administration Mild Pain (1-3) or Fever Enoxaparin Sodium 40 mg 05/04/22 09:00 05/06/22 08:26 Enoxaparin 40 Mg/0.4 Ml Syringe SUB-Q 40 mg DAILY MAYA Administration Famotidine 20 mg 05/05/22 21:00 05/06/22 08:26 Famotidine 20 Mg Tablet PO 20 mg Q12HR MAYA Administration Hydromorphone HCl 1 mg 05/03/22 17:42 05/05/22 12:39 Hydromorphone Hcl Inj (*Crx) 1 Mg/Ml Syr IV PUSH 1 mg Q2H PRN Administration Pain Rated 7-10 Hydromorphone HCl 0.5 mg 05/03/22 17:42 Hydromorphone Hcl Inj (*Crx) 1 Mg/Ml Syr IV PUSH Q2H PRN Pain Rated 4-6 Ibuprofen 400 mg 05/06/22 14:48 Ibuprofen 400 Mg Tablet PO Q6H PRN Pain Rated 4-6 Methocarbamol 750 mg 05/03/22 21:00 05/05/22 19:56 Methocarbamol 750 Mg Tablet PO 750 mg QHS MAYA Administration Naloxone HCl 0.1 mg 05/03/22 17:42 Naloxone Hcl 0.4 Mg/Ml Vial IV PUSH Q2M PRN Opiate Reversal Ondansetron HCl 4 mg 05/03/22 17:42 05/05/22 21:40 Ondansetron Inj 4 Mg/2 Ml Vial IV PUSH 4 mg Q4H PRN Administration Nausea And Vomiting Oxycodone/Acetaminophen 1 tablet 05/06/22 14:49 Oxycodone/Acetaminophen (*Crx) 5-325 Mg Tablet PO Q4H PRN Pain Rated 7-10 Potassium Chloride 40 meq 05/06/22 17:00 Potassium Chloride 20 Meq Tablet.Er PO BIDWM MAYA Simethicone 80 mg 05/06/22 14:49 Simethicone 80 Mg Tab.Chew PO QID PRN Gas Discomfort Trazodone HCl 50 mg 05/04/22 08:24 05/05/22 19:56 Trazodone Hcl 50 Mg Tablet PO 50 mg HS PRN Administration Insomnia Labs Labs: Laboratory Results - last 24 hr 05/06/22 05/06/22 05:46 05:46 WBC 6.1 RBC 2.92 L Hgb 8.7 L Hct 26.6 L M
[2022-05-06] MEDS: IBUPROFEN 400 MG TABLET PO (16:38)
[2022-05-06] MEDS: POTASSIUM CHLORIDE 20 MEQ TABLET.ER 40 MEQ PO (16:38)
[2022-05-06] MEDS: traZODone HCL 50 MG TABLET PO (20:39)
[2022-05-06] MEDS: methocarbamoL 750 MG TABLET PO (20:39)
[2022-05-06 22:56] VITALS: BP 110/64; PULSE 76; RESP 16; TEMP 36.6; O2SAT 95
[2022-05-07] MEDS: IBUPROFEN 400 MG TABLET PO ×2 (01:16→08:33)
[2022-05-07 05:49] LABS: Hemoglobin 8.6 g/dL (12.0-15.0); Mean Corpuscular HGB Conc 33.1 g/dl (32-36); Mean Corpuscular Hemoglobin 29.7 pg (26-34); Mean Corpuscular Volume 89.7 fl (80-100); Mean Platelet Volume 10.5 fl (7.4-10.4); Platelet Count Result 210 k/mm3 (150-375); Red Cell Distribution Width 14.4 % (11.5-14.5); White Blood Count 3.8 K/mm3 (4.5-10.0)
[2022-05-07 05:53] LABS: Anion Gap 2 mmol/L (8-16); Blood Urea Nitrogen 7 mg/dL (7-17); Calcium 7.5 mg/dL (8.4-10.2); Carbon Dioxide 29 mmol/L (22-30); Chloride 104 mmol/L (98-107); Estimated CRCL calculation 88 ml/min; Estimated Glomerular Filt Rate > 60; Glucose 87 mg/dL (65-110); Potassium 2.9 mmol/L (3.4-5.0); Sodium 135 mmol/L (137-145)
[2022-05-07 05:58] VITALS: BP 109/59; PULSE 80; RESP 16; TEMP 36.3; O2SAT 95
[2022-05-07] MEDS: POTASSIUM CHLORIDE 20 MEQ TABLET.ER 40 MEQ PO (08:28)
[2022-05-07] MEDS: ENOXAPARIN 40 MG/0.4 ML SYRINGE SUB-Q (08:28)
[2022-05-07] MEDS: FAMOTIDINE 20 MG TABLET PO (08:28)
--- NOTE | 2022-05-07 10:42 | PM.DS ---
DS: Admitting Diagnosis Discharge Date 05/07/2022 Admitting Diagnosis Ileostomy status History sigmoidectomy for diverticulitis DS: Discharge Diagnosis Discharge Diagnosis (1) History of closure of ileostomy: Code(s): Z98.890 - Other specified postprocedural states Status: Acute (2) Ileostomy status: Code(s): Z93.2 - Ileostomy status Status: Chronic (3) History of colon surgery: Code(s): Z98.890 - Other specified postprocedural states Status: Chronic DS: Summary Hospital Course Hospital Course: On 03/01 2022 patient was taken to surgery for sigmoidectomy. Her diagnosis was recurrent episodes of diverticulitis. At this surgery she had severe pelvic inflammation and fibrosis. The colorectal anastomosis was not performed at an as comfortable a manner as is usually the case. A diverting loop ileostomy was placed to minimize the risk of anastomotic complications. The patient did well. She had a water-soluble contrast enema earlier this month which was negative. She was taken to surgery on 05/03/2022 and her loop ileostomy was closed. Postoperatively she had uneventful course. She had some postop discomfort and nausea but this resolved. She was feeling better on postop day 3. And on postop day 4. She was ambulating independently and taking minimal oral analgesics for pain. She was having bowel movements and her ileostomy closure wound was healing well. She is discharged now on a regular diet in good condition. She did have some low potassium during the admission and received supplementation. She will continue to receive potassium supplementation on post discharge. Status at Discharge Functional status at discharge: independent ambulation Overall status at discharge: patient is progressing back to baseline Time Spent with Patient Time attestation: Total time spent providing and/or coordinating discharge services: Time spent: Less than 30 minutes DS: Data Data Completed and Pending Completed studies during hospitalization: Pending at discharge 05/03/22 12:39 Surgical [PTH] Routine Labs on day of discharge: Labs from last 24 hours 05/07/22 05/07/22 05:32 05:32 WBC 3.8 L RBC 2.90 L Hgb 8.6 L Hct 26.0 L MCV 89.7 MCH 29.7 MCHC 33.1 RDW 14.4 Plt Count 210 MPV 10.5 H Sodium 135 L Potassium 2.9 L Chloride 104 Carbon Dioxide 29 Anion Gap 2 L BUN 7 Creatinine 0.50 L Estim Creat Clear Calc 88 Estimated GFR > 60 Glucose 87 Calcium 7.5 L Discharge Plan Discharge Attending physician on discharge: Hugo Rico Discharging Clinician: Hugo Rico Anticipated Discharge Date/Time: 05/07/22 10:48 Patient Disposition: Home, Self-Care Activity: may shower, no straining and as tolerated Diet: regular Wound Care Instructions: keep dressing dry, remove dressing to shower and change dressing daily Discharge Instructions: Ambulate 3-4 x per day and as tolerated. No lifting over 15-20lbs. May bathe or shower. Stairs are OK. May drive a car in 2 days. Remove any dressings before shower and replace after. On , 05/11/2022, can discontinue dressings and leave the wound open. If diarrhea try [id number] Imodium. Patient Instructions: Antibiotic Form Stand Alone Forms: General Discharge Information Follow-up/Referrals: Hugo Rico MD [Physician] - 05/22/22 (Keep regularly scheduled appointment with Dr. Rico) Discharge Medications: New acetaminophen [Nortemp] 160 mg/5 mL Suspension 650 mg PO Q6H PRN (Reason: Mild Pain (1-3) Or Fever) Qty: 250 0RF potassium chloride 20 mEq tablet extended release 20 meq PO DAILY Qty: 7 0RF Continued methocarbamol 750 mg tablet 1 tablet PO QHS Label Comments: STATES TAKES EVERY NOC Date of admission: 05/03/22 17:42 Primary Care Provider: Ian,Nicole Admitting Provider: Hugo Rico
== END 2022-05-07 12:50 | disposition home or self-care (01) | DRG 331 ==
LOC: ANH3MED 17:44
PROVIDERS: Admitting Provider Surgery; PCP Physician Assistant; Visit Provider Surgery
PROC: 0DBB0ZZ Excision of Ileum, Open Approach (ICD-10-PCS; CPT 44620; principal; 2022-05-03 12:00)
DX: Z43.2 Encounter for attention to ileostomy (principal); Z88.5 Allergy status to narcotic agent
CPT/HCPCS: 36415; 80048; 85027; 88307; A9270; J0690; J1100; J1170; J1650; J1741; J1885; J2250; J2405; J2704; J3010; J7120